=== PATIENT | male | born 1985 | race Caucasian/White ===

== ENCOUNTER 2020-03-21 10:59 | Emergency (ER) | payer SELFPAY ==
[2020-03-21 11:01] VITALS: BP 130/80; PULSE 98; RESP 18; TEMP 37.3; O2SAT 95; BMI 35.4
--- NOTE | 2020-03-21 11:11 | ED_ITS ---
HPI - General Adult General: Chief complaint: Upper Respiratory Infection Stated complaint: FLU LIKE SYMPTOMS Time Seen by Provider: 03/21/20 11:02 Source: patient Mode of arrival: ambulatory Limitations: no limitations History of Present Illness: HPI narrative: Patient is a 34-year-old male who presents to ED today with a complaint of a fever over the past 2 days. Patient tells me he is also having body aches, sore throat, and intermittent chest pain. He tells me pain seems to be worse with swallowing. He has not had a cough. Denies abdominal pain, nausea, vomiting, diarrhea. He is not having any ear pain/drainage, nasal congestion, sinus pain, visual changes. He denies sick contacts. No recent travel. He does admit to a few tick bites recently but has not noticed any abnormal lesions or rashes. States ticks couldn't have been attached for longer than a few hours. Onset (ago): day(s) Pain Consistency: constant Relieving factors: none Exacerbating factors: other (swallowing ) Associated symptoms: Reports chest pain; Deny dyspnea, headache(s), nausea, rash, palpitations, syncope or vomiting Review of Systems Const: Reports: fever(s), body aches and change in appetite; Denies: change in weight Eyes: Denies: change in vision, blurry vision, photophobia, floaters or seeing flashes ENMT: Reports: throat pain and odynophagia; Denies: dental pain, ear or mastoid pain, ear discharge, nasal discharge, nasal congestion or epistaxis Card: Reports: chest pain; Denies: palpitations, irregular heart rhythm, edema, swelling of feet/ankles, lightheadedness, syncope, pre-syncope, dyspnea on exertion, orthopnea, leg pain with exertion or acrocyanosis Resp: Denies: dyspnea, productive cough, non-productive cough, change in phlegm color, hemoptysis or chest congestion GI: Denies: abdominal pain, nausea, vomiting or diarrhea : Denies: flank pain, difficulty urinating, dysuria, urinary frequency or urinary urgency Musc: Denies: neck pain, back pain, extremity pain, extremity swelling, joint pain or joint swelling Skin/Breast: Denies: rash Neuro: Denies: headache(s), numbness in extremities, weakness in extremities or sensory changes Physical Exam Const: COMMON NORMALS: average body habitus, patient oriented x3, no limitations, healthy appearing, alert and well nourished GENERAL APPEARANCE: cooperative ORIENTATION/CONSCIOUSNESS: Yes oriented to person, Yes oriented to place and Yes oriented to time OTHER: looks like he doesn't feel well HENMT: COMMON NORMALS: normocephalic, atraumatic, hearing grossly normal bilaterally, external ears normal, EAC's normal, TM's normal bilaterally, Normal external nose present, Normal nasal mucous membranes and turbinates present and moist oral mucous membranes HEAD & SCALP: normal to inspection, normocephalic and atraumatic FACE & SINUS: normal facial exam and sinuses nontender NOSE: Normal external nose present and Normal nasal mucous membranes and turbinates present EXTERNAL EAR: Yes external ears normal EXTERNAL AUDITORY CANAL: EAC's normal TYMPANIC MEMBRANE: TM's normal bilaterally MOUTH: Normal oral and palatal mucosa present, lip normal and tongue normal THROAT: uvula midline and abnormal tonsil bilateral (no ARMORING MACHINE OPERATOR, no drooling, no muffled voice) erythema and exudates Eye: COMMON NORMALS: Equal, round and reactive pupils present, EOMs intact bilaterally, conjunctivae normal and no scleral icterus CONJUNCTIVA: Yes conjunctivae normal PUPIL: Yes Equal, round and reactive pupils present Neck/C-Spine: COMMON NORMALS: full ROM, supple and no meningeal signs GENERAL: Yes lymphadenopathy Lymphadenopathy location: anterior cervical Chest: COMMONS NORMALS: normal inspection of the chest and normal palpation of entire chest wall Resp: COMMON NORMALS: normal respiratory effort and clear to auscultation bilaterally AUSCULTATION: clear to auscultation bilaterally Cardio: COMMON NORMALS: regular rate and regular rhythm RATE: regular rate RHYTHM: regular rhythm GI: COMMON NORMALS: Normal to inspection, nondistended, normoactive bowel sounds present, Soft to palpation, non-tender, No hepatosplenomegaly present and no masses PALPATION: Yes Soft to palpation and Yes No hepatosplenomegaly present : COMMON NORMALS: Yes no CVA tenderness BLADDER/KIDNEY EXAM: Yes no CVA tenderness Back/Pelvis: COMMON NORMALS: no CVA tenderness and thoracic and lumbar spine normal to inspection Extremity: COMMON NORMALS: normal to inspection Neuro: COMMON NORMALS: patient oriented x3 SENSORIUM/ORIENTATION: Yes alert, Yes oriented to person, Yes oriented to place and Yes oriented to time MENINGEAL SIGNS: Yes no meningeal signs Skin: COMMON NORMALS: no rashes or lesions noted GENERAL SKIN EXAM: no rashes or lesions noted Course Vital Signs: Vital signs: Vital Signs Temperature 103 F H 03/21/20 12:50 Pulse Rate 109 H 03/21/20 13:03 Respiratory Rate 14 03/21/20 13:03 Blood Pressure 120/77 03/21/20 13:03 Pulse Oximetry 98 03/21/20 13:[address] [facility] - General Adult Lab Data: Labs: Lab Results 03/21/20 03/21/20 03/21/20 Range/Units 11:35 11:35 11:35 WBC 18.0 H (4.0-10.0) 10^3/ uL RBC 5.30 (4.1-5.3) 10^6/u L Hgb 16.7 H (11.7-16.6) g/dL Hct 48.9 (42.0-52.0) % MCV 92.3 (80-94) fL MCH 31.5 (28.0-34.0) pg MCHC 34.2 (30.0-36.0) g/dL RDW 12.4 (12.1-15.1) % Plt Count 211 (130-400) 10^3/c mm MPV 10.1 (7.4-10.4) fL Neut % (Auto) 85.9 % Lymph % (Auto) 6.0 % [place] % (Auto) 7.2 % Eos % (Auto) 0.1 % Baso % (Auto) 0.4 % Neut # (Auto) 15.5 H (1.8-7.7) 10^3/u L Lymph # (Auto) 1.1 (0.8-4.8) 10^3/u L [place] # (Auto) 1.3 H (0.2-0.9) 10^3/u L Eos # (Auto) 0.0 (0.0-0.8) 10^3/u L Baso # (Auto) 0.1 (0.0-0.1) 10^3/u L Nucleated RBC % (a uto) 0 % Nucleated RBCs # 0.0 /100WBC Sodium 135 L (136-145) mmol/L Potassium 3.8 (3.5-5.1) mmol/L Chloride 97 L (98-107) mmol/L Carbon Dioxide 26 (22-29) mmol/L Anion Gap 15.8 (5-19) BUN 8 (6-20) mg/dL Creatinine 0.9 (0.7-1.2) mg/dL GFR Calculation 97.2 (90-130) mL/min Glucose 104 (65-115) mg/dL Calculated Osmolal ity 276 L (285-295) mOsm/k g Calcium 9.8 (8.5-10.5) mg/dL Total Bilirubin 0.9 (0.15-1.2) mg/dL AST 24 (0-40) U/L ALT 33 (0-41) U/L Alkaline Phosphata se 81 (40-130) IU/L Total Protein 7.5 (6.6-8.7) g/dL Albumin 4.4 (3.5-5.2) g/dL Globulin 3.1 (1.3-4.6) g/dL Monoscreen Negative (Negative) Influenza Type A A g (Negative) Influenza Type B A g (Negative) Group A Strep Rapi d (Negative) 03/21/20 03/21/20 Range/Units 11:40 11:40 WBC (4.0-10.0) 10^3/ uL RBC (4.1-5.3) 10^6/u L Hgb (11.7-16.6) g/dL Hct (42.0-52.0) % MCV (80-94) fL MCH (28.0-34.0) pg MCHC (30.0-36.0) g/dL RDW (12.1-15.1) % Plt Count (130-400) 10^3/c mm MPV (7.4-10.4) fL Neut % (Auto) % Lymph % (Auto) % [place] % (Auto) % Eos % (Auto) % Baso % (Auto) % Neut # (Auto) (1.8-7.7) 10^3/u L Lymph # (Auto) (0.8-4.8) 10^3/u L [place] # (Auto) (0.2-0.9) 10^3/u L Eos # (Auto) (0.0-0.8) 10^3/u L Baso # (Auto) (0.0-0.1) 10^3/u L Nucleated RBC % (a uto) % Nucleated RBCs # /100WBC Sodium (136-145) mmol/L Potassium (3.5-5.1) mmol/L Chloride (98-107) mmol/L Carbon Dioxide (22-29) mmol/L Anion Gap (5-19) BUN (6-20) mg/dL Creatinine (0.7-1.2) mg/dL GFR Calculation (90-130) mL/min Glucose (65-115) mg/dL Calculated Osmolal ity (285-295) mOsm/k g Calcium (8.5-10.5) mg/dL Total Bilirubin (0.15-1.2) mg/dL AST (0-40) U/L ALT (0-41) U/L Alkaline Phosphata se (40-130) IU/L Total Protein (6.6-8.7) g/dL Albumin (3.5-5.2) g/dL Globulin (1.3-4.6) g/dL Monoscreen (Negative) Influenza Type A A g Negative (Negative) Influenza Type B A g Negative (Negative) Group A Strep Rapi d Positive H (Negative) Imaging Data^: CXR: Radiologist's impression: [place] [address] XRay Report Signed Patient: Ashkan Orta Unit #: [id number] : 1985 Age/Sex: 34 / M ADM Date: 03/21/20 Loc: ER Room/Bed: Attending Dr: Ordering Provider/Ordering MD: Sheri Peterson Date of Service: 03/21/20 Procedure(s): XR chest 1V portable [id number] Accession Number(s): [id number] Report Number: [id number] PROCEDURE INFORMATION: Exam: XR Chest, 1 View Exam date and time: 03/21/2020 11:44 AM Age: 34 years old Clinical indication: Chest pain; Type not specified; Additional info: Chest painx 2 days TECHNIQUE: Imaging protocol: XR of the chest Views: 1 view. COMPARISON: CR Chest 1 [place] [id number] 04/24/2017 7:07 AM FINDINGS: Lungs: No acute airspace disease. Pleural space: No pleural effusion. Heart/Mediastinum: No cardiomegaly. Bones/joints: Unremarkable. When correlating with the previous study, no significant interval changes are present. XR/XR chest 1V portable [id number] IMPRESSION: No acute airspace or pleural disease. Dictated By: Gerald Sevilla MD Signed By: Gerald Sevilla MD Signed Date/Time: 03/21/20 120 DD/ 120 Discharge Plan Discharge Patient Disposition: Home, Self-Care Clinical Impression: Acute streptococcal tonsillitis Qualifiers: Streptococcal tonsillitis recurrence: non-recurrent Qualified Code(s): J03.00 - Acute streptococcal tonsillitis, unspecified Condition: Stable Prescriptions: New Keflex 500 mg capsule 500 mg PO Q12H 10 Days Qty: 20 RF: 0 Discharge Orders: Discharge Order (Routine); Ordered 03/21/20 Ordered By: Sheri Peterson Referrals: Desiree Rico FNP [Primary Care Provider] - Patient Instructions: Tonsillitis (ED), Strep Throat - Adult Activity Restrictions/Additional Instructions: Please return to the emergency department for worsening pain, inability to hold down your medications, inability to swallow food/water/saliva, drooling, uncontrollable fevers, or any other concerns you may have. As discussed please alternate Tylenol and Motrin throughout the day for fevers and body aches. 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
--- NOTE | 2020-03-21 11:21 | XRR_ITS ---
PROCEDURE INFORMATION: Exam: XR Chest, 1 View Exam date and time: 03/21/2020 11:44 AM Age: 34 years old Clinical indication: Chest pain; Type not specified; Additional info: Chest painx 2 days TECHNIQUE: Imaging protocol: XR of the chest Views: 1 view. COMPARISON: CR Chest 1 [place] [id number] 04/24/2017 7:07 AM FINDINGS: Lungs: No acute airspace disease. Pleural space: No pleural effusion. Heart/Mediastinum: No cardiomegaly. Bones/joints: Unremarkable. When correlating with the previous study, no significant interval changes are present. XR/XR chest 1V portable [id number] IMPRESSION: No acute airspace or pleural disease.
[2020-03-21 11:52] LABS: Basophils # 0.1 10^3/uL (0.0-0.1); Basophils % 0.4 %; Eosinophils % 0.1 %; Hematocrit 48.9 % (42.0-52.0); Hemoglobin 16.7 g/dL (11.7-16.6); Lymphocytes # 1.1 10^3/uL (0.8-4.8); Mean Corpuscular HGB Conc 34.2 g/dL (30.0-36.0); Mean Corpuscular Hemoglobin 31.5 pg (28.0-34.0); Mean Corpuscular Volume 92.3 fL (80-94); Mean Platelet Volume 10.1 fL (7.4-10.4); Monocytes # 1.3 10^3/uL (0.2-0.9); Monocytes % 7.2 %; Neutrophils # 15.5 10^3/uL (1.8-7.7); Neutrophils % 85.9 %; Nucleated Red Blood Cells % 0 %; Platelet Count 211 10^3/cmm (130-400); Red Cell Distribution Width 12.4 % (12.1-15.1)
[2020-03-21 12:13] LABS: Monoscreen Negative (Negative)
[2020-03-21 12:20] LABS: Alanine Aminotransferase 33 U/L (0-41); Albumin Level 4.4 g/dL (3.5-5.2); Alkaline Phosphatase 81 IU/L (40-130); Anion Gap 15.8 (5-19); Aspartate Amino Transferase 24 U/L (0-40); Blood Urea Nitrogen 8 mg/dL (6-20); Calcium 9.8 mg/dL (8.5-10.5); Carbon Dioxide 26 mmol/L (22-29); Chloride 97 mmol/L (98-107); Globulin 3.1 g/dL (1.3-4.6); Glomerular Filtration Rate 97.2 mL/min (90-130); Glucose 104 mg/dL (65-115); Osmolality Calculated 276 mOsm/kg (285-295); Potassium 3.8 mmol/L (3.5-5.1); Sodium 135 mmol/L (136-145); Total Bilirubin 0.9 mg/dL (0.15-1.2); Total Protein 7.5 g/dL (6.6-8.7)
[2020-03-21 12:39] LABS: Rapid Strep A Test Positive (Negative)
[2020-03-21 12:50] VITALS: TEMP 39.4
[2020-03-21 12:58] LABS: Influenza A by IFA Negative (Negative); Influenza B by IFA Negative (Negative)
[2020-03-21] MEDS: acetaminophen 500 mg Tablet 1000 MG PO (13:02)
[2020-03-21 13:03] VITALS: BP 120/77; PULSE 109; RESP 14; O2SAT 98
[2020-03-22 13:10] LABS: Lyme AB Screen <0.90 index
[2020-03-22 20:16] LABS: Quest SARS-CoV-2 RNA NOT DETECTED (NOT DETECTED)
[2020-03-24 19:34] LABS: E. Chaffeensis AB IGG <1:64; E. Chaffeensis AB IGM <1:20; RMSF IGG NOT DETECTED; RMSF IGM NOT DETECTED
== END 2020-03-21 13:22 | disposition home or self-care (01) ==
PROVIDERS: Emergency Provider Physician Assistant; PCP Nurse Practitioner Family
DX: J03.00 Acute streptococcal tonsillitis, unspecified (principal)
CPT/HCPCS: 12345; 36415; 71045; 80053; 85025; 86308; 86618; 86666; 86757; 87635; 87804; 87880; 99283

== ENCOUNTER → 2020-08-03 13:28 | Outpatient (BNVA) | payer MEDICAID, SELFPAY | PROVIDERS: PCP Nurse Practitioner Family; Referring Provider Family Medicine Adult Medicine; Visit Provider Orthopaedic Surgery | DX: G89.29 Other chronic pain (principal); M25.519 Pain in unspecified shoulder; M79.601 Pain in right arm | CPT/HCPCS: 73030 ==

== ENCOUNTER 2021-05-08 08:03 | Emergency (ER) | payer MEDICAID, SELFPAY ==
[2021-05-08 08:11] VITALS: BP 106/69; PULSE 81; RESP 20; TEMP 37.1; O2SAT 96
[2021-05-08 08:17] VITALS: BP 106/69; PULSE 81; TEMP 37; O2SAT 96
--- NOTE | 2021-05-08 08:19 | CT_ITS ---
WS: [id number] CT ABDOMEN PELVIS TECHNIQUE: Contrast-enhanced CT of the abdomen and pelvis with coronal and sagittal reformatted image s. CLINICAL INFORMATION: abd pain COMPARISON: 2 27,016 DLP: 1783.[address] scans at [facility] use at least one of these dose optimization techniques: automat ed exposure control; mA and/or kV adjustment per patient size (includes targeted exams where dose is matched to clinical indication); or iterative reconstruction. FINDINGS: Diffuse fatty infiltration of the liver. Normal spleen. Normal GE junction. Lung bases are well aerat ed. Adrenal glands are normal. Normal renal parenchymal enhancement. No hydronephrosis. Normal gallbl adder. Normal portal vein and splenic vein. Normal spleen. Normal pancreas. Normal caliber abdominal aorta. Diffuse thickening with inflammatory stranding and surrounding indura tion involving the right colon and transverse colon. This also involves the descending left colon and proximal sigmoid colon. Findings consistent with infectious or inflammatory colitis. No drainable fl uid collections. Enlarged lymph nodes involving the central mesentery and right lower quadrants likely reactive no pel miriam or inguinal lymphadenopathy. CT/CT abdomen pelvis w con* [id number] IMPRESSION: 1. Colonic thickening with surrounding induration compatible with infectious o r inflammatory colitis more prominent at the hepatic flexure, splenic flexure a nd left lower quadrant. 2. Reactive lymph nodes along the central mesentery and right lower quadrant. 3. No drainable abscess or fluid collection. 4. No other significant findings. Attempted notification Ethan Clifford DO at 05/08/2021 8:53 AM.
[2021-05-08] MEDS: iohexol 300 mg/mL 100 mL Btl IV (08:34)
[2021-05-08 08:46] LABS: Basophils # 0.1 10^3/uL (0.0-0.1); Basophils % 0.7 %; Eosinophils # 0.2 10^3/uL (0.0-0.8); Eosinophils % 1.8 %; Hematocrit 44.3 % (42.0-52.0); Hemoglobin 15.5 g/dL (11.7-16.6); Lymphocytes # 1.6 10^3/uL (0.8-4.8); Lymphocytes % 16.9 %; Mean Corpuscular Hemoglobin 32.4 pg (28.0-34.0); Mean Corpuscular Volume 92.5 fl (80-94); Mean Platelet Volume 9.4 fL (7.4-10.4); Monocytes % 10.8 %; Neutrophils # 6.63 10^3/uL (1.8-7.7); Neutrophils % 69.6 %; Nucleated Red Blood Cells % 0 %; Platelet Count 231 10^3/cmm (130-400); Red Blood Count 4.79 10^6/uL (4.1-5.3); Red Cell Distribution Width 12.3 % (12.1-15.1); White Blood Count 9.5 10^3/uL (4.0-10.0)
[2021-05-08] MEDS: sodium chloride 0.9% 1,000 ML 999 ML IV (08:52)
[2021-05-08] MEDS: ondansetron 2 mg/ML SDV 2 mL 4 MG IVP (08:52)
[2021-05-08 09:08] LABS: Alanine Aminotransferase 20 U/L (0-41); Albumin Level 3.9 g/dL (3.5-5.2); Alkaline Phosphatase 77 IU/L (40-130); Anion Gap 14.7 (5-19); Aspartate Amino Transferase 13 U/L (0-40); Blood Urea Nitrogen 8 mg/dL (6-20); Carbon Dioxide 24 mmol/L (22-29); Chloride 105 mmol/L (98-107); Globulin 2.9 g/dL (1.3-4.6); Glomerular Filtration Rate 129.1 mL/min (90-130); Glucose 96 mg/dL (65-115); Lipase 21 U/L (13-60); Osmolality Calculated 288 mOsm/kg (285-295); Potassium 3.7 mmol/L (3.5-5.1); Sodium 140 mmol/L (136-145); Total Bilirubin 0.4 mg/dL (0.15-1.2); Total Protein 6.8 g/dL (6.6-8.7)
[2021-05-08 09:19] LABS: Add Urine Microscopic? YES; Bilirubin Urine 1+ (Negative); Blood Urine Neg (Negative); Glucose Urine UA Norm (Normal); Ketones Urine Negative (Negative); Leukocyte Esterase Urine Trace (Negative); Nitrate Urine Negative (Negative); Protein Urine Neg (Negative); Urine Appearance Clear (CLEAR); Urine Color Yellow (Yellow); Urobilinogen Urine 1 mg/dL (Negative); pH Urine 6.5 (5-7)
[2021-05-08 09:21] LABS: Add Urine Culture? No; Bacteria Urine TRACE /hpf; Mucus Urine 2+ /hpf; RBC Urine 0-4 /hpf (0-2); Squamous Epithelial Cell Urine 0-4 /hpf (0-5); WBC Urine 0-4 /hpf (0-5)
[2021-05-08 09:23] VITALS: RESP 20; O2SAT 97
[2021-05-08] MEDS: morphine 4 mg/mL SDV 1 mL 6 MG IVP (09:23)
[2021-05-08 09:30] VITALS: BP 117/67; PULSE 77; RESP 18; O2SAT 95
--- NOTE | 2021-05-08 09:33 | PC.NURSE ---
THIS NURSE ADMINISTERED 6 MG OF MORPHINE TO PATIENT. PATIENT IMMEDIATELY FELT PAIN RELIEF DOWN TO A 3/10, BUT ALSO STATED THAT HIS HEART FELT HEAVY. PATIENT IS DROWSY, BUT RESPONDS TO VERBAL STIMULUS. AT BEDSIDE, NO ACUTE DISTRESS NOTED.
--- NOTE | 2021-05-08 09:57 | ED_ITS ---
HPI - Abdominal Pain General: Chief Complaint: Abdominal Pain Stated Complaint: SEVERE LOWER/L SIDE ABD PAIN Time Seen by Provider: 05/08/21 08:09 History of Present Illness: HPI narrative: 35-year-old male presents to the emergency room with complaints of abdominal pain. Began generally periumbilical radiates now into both lower quadrants is difficult to get him to localize it to one particular area he states when he gets discomfort gets across the entire lower pelvic region. He is not had any cough cold nasal congestion or sore throat. He has had some diarrhea with this but denies any hematochezia. No vomiting. No dysuria urgency or frequency is not noticed anything that exacerbates it or relieves it. MD elicited complaint: abdominal pain Pertinent past history: none Onset (ago): day(s) Pain Consistency: intermittent and colicky Location: Periumbilical Severity: moderate Quality: cramping Radiation: none Migration to: LLQ and RLQ Exacerbating factors: movement Relieving factors: rest Associated Symptoms: Reports anorexia, bloating, GI cramping, diarrhea, nausea and poor appetite; Denies belching, change in bowel habits, change in stool character, chills, coffee ground emesis, constipation, dyspepsia, dysuria, excessive flatus, fever(s), heartburn, hematochezia, hematuria, hematemesis, fecal incontinence, loose stools, melena, syncope and vomiting Review of Systems Const: Denies: fever(s) or chills ENMT: Denies: throat pain, ear or mastoid pain, nasal discharge or nasal congestion Card: Denies: syncope Resp: Denies: dyspnea, productive cough or non-productive cough GI: Reports: nausea, diarrhea, bloating and GI cramping; Denies: vomiting, hematemesis, coffee ground emesis, heartburn, constipation, be lching, excessive flatus, fecal incontinence, change in bowel habits, change in stool character, hematochezia or melena : Denies: dysuria or hematuria Skin/Breast: Denies: rash or pruritus PFSH ED PFSH: Medical History Chronic pain of right upper extremity Muscle right arm weakness Rotator cuff syndrome of shoulder and allied disorders Social History Smoking and tobacco status: never smoked Physical Exam Const: COMMON NORMALS: no acute distress GENERAL APPEARANCE: cooperative and comfortable ORIENTATION/CONSCIOUSNESS: Yes awake, Yes oriented to person, Yes oriented to place and Yes oriented to time HENMT: COMMON NORMALS: normocephalic, atraumatic and hearing grossly normal bilaterally HEAD & SCALP: normocephalic and atraumatic Neck/C-Spine: COMMON NORMALS: no JVD Lymph: LYMPHATIC: no lymphadenopathy noted and no lymphedema noted Resp: COMMON NORMALS: normal respiratory effort, No retractions, No use of accessory muscles and clear to auscultation bilaterally AUSCULTATION: clear to auscultation bilaterally Cardio: COMMON NORMALS: no JVD, regular rate, regular rhythm and No murmurs present (Cardio) RATE: regular rate RHYTHM: regular rhythm GI: COMMON NORMALS: No hepatosplenomegaly present AUSCULTATION: Yes normoactive bowel sounds PALPATION: Yes Tenderness to palpation present (GI) Details: LLQ and RLQ, No Guarding due to palpation present (GI) and Yes No hepatosplenomegaly present Extremity: COMMON NORMALS: normal to inspection, capillary refill normal, no clubbing, cyanosis or edema, no calf tenderness and no pedal edema Neuro: SENSORIUM/ORIENTATION: Yes oriented to person, Yes oriented to place and Yes oriented to time Skin: COMMON NORMALS: no rashes or lesions noted GENERAL SKIN EXAM: no rashes or lesions noted Course Vital Signs: Vital signs: Vital Signs Temperature 98.6 F 05/08/21 08:17 Pulse Rate 73 05/08/21 10:29 Respiratory Rate 18 05/08/21 09:30 Blood Pressure 131/62 05/08/21 10:29 Pulse Oximetry 96 05/08/21 10:29 MDM - Abdominal Pain MDM Narrative: Medical decision making narrative: Viewed labs and imaging findings with the patient. We will start him on Cipro and Flagyl hydrocodone for pain promethazine as needed clear liquid diet for 24 to 48 hours then advance as tolerated. If worsening return. Follow-up with his primary care doctor at some point he probably should have a colonoscopy to further evaluate. Lab Data: Labs: Lab Results 05/08/21 05/08/21 05/08/21 Range/Units 08:30 08:30 08:56 WBC 9.5 (4.0-10.0) 10^3/ uL RBC 4.79 (4.1-5.3) 10^6/u L Hgb 15.5 (11.7-16.6) g/dL Hct 44.3 (42.0-52.0) % MCV 92.5 (80-94) fl MCH 32.4 (28.0-34.0) pg MCHC 35.0 (30.0-36.0) g/dL RDW 12.3 (12.1-15.1) % Plt Count 231 (130-400) 10^3/c mm MPV 9.4 (7.4-10.4) fL Neut % (Auto) 69.6 % Lymph % (Auto) 16.9 % [place] % (Auto) 10.8 % Eos % (Auto) 1.8 % Baso % (Auto) 0.7 % Neut # (Auto) 6.63 (1.8-7.7) 10^3/u L Lymph # (Auto) 1.6 (0.8-4.8) 10^3/u L [place] # (Auto) 1.0 H (0.2-0.9) 10^3/u L Eos # (Auto) 0.2 (0.0-0.8) 10^3/u L Baso # (Auto) 0.1 (0.0-0.1) 10^3/u L Nucleated RBC % (a uto) 0 % Nucleated RBCs # 0.0 /100WBC Sodium 140 (136-145) mmol/L Potassium 3.7 (3.5-5.1) mmol/L Chloride 105 (98-107) mmol/L Carbon Dioxide 24 (22-29) mmol/L Anion Gap 14.7 (5-19) BUN 8 (6-20) mg/dL Creatinine 0.7 (0.7-1.2) mg/dL GFR Calculation 129.1 (90-130) mL/min Glucose 96 (65-115) mg/dL Calculated Osmolal ity 288 (285-295) mOsm/k g Calcium 9.0 (8.5-10.5) mg/dL Total Bilirubin 0.4 (0.15-1.2) mg/dL AST 13 (0-40) U/L ALT 20 (0-41) U/L Alkaline Phosphata se 77 (40-130) IU/L Total Protein 6.8 (6.6-8.7) g/dL Albumin 3.9 (3.5-5.2) g/dL Globulin 2.9 (1.3-4.6) g/dL Lipase 21 (13-60) U/L Urine Color Yellow (Yellow) Urine Appearance Clear (CLEAR) Urine pH 6.5 (5-7) Ur Specific Gravit y 1.010 (1.005-1.030) Urine Protein Neg (Negative) Urine Glucose (UA) Norm (Normal) Urine Ketones Negative (Negative) Urine Blood Neg (Negative) Urine Nitrate Negative (Negative) Urine Bilirubin 1+ H (Negative) Urine Urobilinogen 1 H (Negative) mg/dL Ur Leukocyte Deja ase Trace H (Negative) Urine RBC 0-4 H (0-2) /hpf Urine WBC 0-4 H (0-5) /hpf Ur Squamous Epith Cells 0-4 H (0-5) /hpf Amorphous Sediment Not Reportable Urine Bacteria Trace (NONE) /hpf Urine Mucus 2+ /hpf Discharge Plan Discharge Patient Disposition: Home Clinical Impression: Colitis Condition: Stable Prescriptions: New Cipro 500 mg tablet 500 mg PO BID Qty: 20 RF: 0 Flagyl 500 mg tablet 500 mg PO BID 10 Days Qty: 20 RF: 0 hydrocodone-acetaminophen 5-325 mg tablet 1 tab PO Q6H PRN (Reason: pain) Qty: 15 RF: 0 No Action promethazine 25 mg tablet 25 mg PO Q6H PRN (Reason: nausea and vomiting) Qty: 20 RF: 0 Discharge Orders: Discharge ED (Routine); Ordered 05/08/21 Ordered By: Ethan Clifford Discharge Diet: Clear Liquid Discharge Activity: Increase activity as tolerated Patient Instructions: Opioid Safety Coding Level of 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
[2021-05-08 10:02] VITALS: BP 107/74; PULSE 79; O2SAT 97
[2021-05-08 10:29] VITALS: BP 131/62; PULSE 73; O2SAT 96
== END 2021-05-08 10:31 | disposition home or self-care (01) ==
PROVIDERS: Emergency Provider Family Medicine
DX: K52.9 Noninfective gastroenteritis and colitis, unspecified (principal)
CPT/HCPCS: 74177; 80053; 81001; 83690; 85025; 96361; 96374; 96375; 99284; J2270; J2405; J7030; Q9967

== ENCOUNTER 2021-05-23 08:48 | Emergency (ER) | payer MEDICAID, SELFPAY ==
[2021-05-23 09:56] VITALS: BP 138/89; PULSE 53; RESP 16; TEMP 36.6; O2SAT 97; BMI 36.1
--- NOTE | 2021-05-23 10:01 | W.ED.NEUROSD ---
HPI - Neuro Symptoms/Deficit General: Chief Complaint: Neuro Symptoms/Deficit Stated Complaint: blurry vision , headache, chest pain Time Seen by Provider: 05/23/21 10:01 History of Present Illness: HPI Narrative: Mr. Orta is a 33-year-old gentleman with reported history of mini strokes who presents emergency department due to vision changes and headache associated with paresthesias. Symptom onset was approximately 7 PM on 05/22. Prior to this he endorses feeling at his baseline health. He primarily endorses chest discomfort, left arm paresthesias, and headache associated with vision changes. Overall the course of symptoms has persisted. He took a oxycodone at home and is somewhat somnolent at this time. There are no specific exacerbating, or alleviating factors. He has had similar episodes in the past. Review of Systems General: Reports: 10 or more systems reviewed and unremarkable except in HPI and below Narrative: CONSTITUTIONAL: denies fever, fatigue, weakness EYES - denies pain, denies loss of vision EARS - denies ear issues. NOSE - denies congestion or rhinorrhea. THROAT - denies sore throat or difficulty swallowing. CARDIOVASCULAR -see HPI RESPIRATORY - denies shortness of breath and cough GASTROINTESTINAL - denies abdominal pain, no nausea vomiting, no changes in bowel habits GENITOURINARY - denies dysuria or urinary frequency MUSCULOSKELETAL- denies deformity or pain SKIN - denies rashes or new changed skin lesions NEUROLOGIC -see HPI HEMATOLOGIC/LYMPHATIC - denies easy bruising or lymphadenopathy. [facility] ED PFSH: Medical History Chronic pain of right upper extremity Muscle right arm weakness Rotator cuff syndrome of shoulder and allied disorders Social History Smoking and tobacco status: never smoked Physical Exam Narrative: EXAM NARRATIVE: GENERAL/CONSTITUTIONAL -mildly ill-appearing. No acute distress. Somnolent Eyes - PERRL, no conjunctival injection ENMT - Atraumatic external nose and ears. Moist mucous membranes NECK - supple. trachea midline CARDIOVASCULAR - regular rate and rhythm. Peripheral pulses 2+ and equal RESPIRATORY -clear to auscultation bilaterally. No retractions or accessory muscle use. ABDOMEN/GI - Nontender/Nondistended. No tenderness to percussion or evidence of peritonitis MSK - Extremities without obvious deformity or tenderness to palpation SKIN - Warm, Dry NEURO - alert and appropriately oriented. Cranial nerves II through XII intact. Moves all extremities. Subjective sensory changes. Overall slowed coordination. PSYCH - Appropriate mood and affect Course ED course: - Patient was seen and evaluated by me at bedside - Patient placed on cardiac monitors, IV access obtained - Initial evaluation notable for somnolent appearance, subjective neurologic changes -Symptom treatment ordered - Labs notable for no acute abnormality to explain patient's symptoms - Imaging notable for no acute abnormality to explain symptoms - Upon serial reexamination after treatment the patient was improved with headache treatment though not completely gone. Patient reports resolution of visual changes. -Patient's age is atypical for primary neurologic process and no significant abnormality was noted on vascular imaging. Given time of onset before presentation I did explain that definitive rule out of subarachnoid hemorrhage would require lumbar puncture which he declined at this time. Additional considerations for patient's symptoms could be complex headache. - At time of seeing and evaluating the patient I did not have access to previous system records and no records of advanced head imaging or neurology evaluation were available as reported by patient. - The results of ED evaluation were discussed with the patient including prescriptions and/or symptomatic cares (if applicable) including appropriate and responsible use, followup plan, and return precautions. The patient verbalized understanding and felt safe for discharge. - Patient discharged in satisfactory condition. Vital Signs: Vital signs: Vital Signs Temperature 97.9 F 05/23/21 09:56 Pulse Rate 57 L 05/23/21 14:07 Respiratory Rate 16 05/23/21 09:56 Blood Pressure 116/72 05/23/21 14:07 Pulse Oximetry 99 05/23/21 14:07 MDM - Neuro Symptoms/Deficit Medical Records: Attestation: I reviewed the patient's medical records. Lab Data: Attestation: I reviewed the patient's lab results. Labs: Lab Results 05/23/21 05/23/21 05/23/21 Range/Units 10:29 10:29 10:29 WBC 7.4 (4.0-10.0) 10^3/ uL RBC 5.12 (4.1-5.3) 10^6/u L Hgb 16.1 (11.7-16.6) g/dL Hct 46.9 (42.0-52.0) % MCV 91.6 (80-94) fl MCH 31.4 (28.0-34.0) pg MCHC 34.3 (30.0-36.0) g/dL RDW 12.1 (12.1-15.1) % Plt Count 284 (130-400) 10^3/c mm MPV 9.5 (7.4-10.4) fL Neut % (Auto) 61.1 % Lymph % (Auto) 28.0 % [place] % (Auto) 7.0 % Eos % (Auto) 2.4 % Baso % (Auto) 1.2 % Neut # (Auto) 4.51 (1.8-7.7) 10^3/u L Lymph # (Auto) 2.1 (0.8-4.8) 10^3/u L [place] # (Auto) 0.5 (0.2-0.9) 10^3/u L Eos # (Auto) 0.2 (0.0-0.8) 10^3/u L Baso # (Auto) 0.1 (0.0-0.1) 10^3/u L Nucleated RBC % (a uto) 0 % Nucleated RBCs # 0.0 /100WBC Sodium 138 (136-145) mmol/L Potassium 4.2 (3.5-5.1) mmol/L Chloride 103 (98-107) mmol/L Carbon Dioxide 24 (22-29) mmol/L Anion Gap 15.2 (5-19) BUN 15 (6-20) mg/dL Creatinine 0.6 L (0.7-1.2) mg/dL GFR Calculation 154.2 H (90-130) mL/min Glucose 90 (65-115) mg/dL POC Glucose (70-110) mg/dL Calculated Osmolal ity 286 (285-295) mOsm/k g Lactate 0.9 (0.5-2.2) mmol/L Calcium 9.0 (8.5-10.5) mg/dL Total Bilirubin 0.7 (0.15-1.2) mg/dL AST 27 (0-40) U/L ALT 54 H (0-41) U/L Alkaline Phosphata se 65 (40-130) IU/L Total Protein 7.1 (6.6-8.7) g/dL Albumin 4.3 (3.5-5.2) g/dL Globulin 2.8 (1.3-4.6) g/dL TSH 0.79 (0.27-4.20) uIU/ mL Urine Color (Yellow) Urine Appearance (CLEAR) Urine pH (5-7) Ur Specific Gravit y (1.005-1.030) Urine Protein (Negative) Urine Glucose (UA) (Normal) Urine Ketones (Negative) Urine Blood (Negative) Urine Nitrate (Negative) Urine Bilirubin (Negative) Urine Urobilinogen (Negative) mg/dL Ur Leukocyte Deja ase (Negative) 05/23/21 05/23/21 Range/Units 11:02 11:26 WBC (4.0-10.0) 10^3/ uL RBC (4.1-5.3) 10^6/u L Hgb (11.7-16.6) g/dL Hct (42.0-52.0) % MCV (80-94) fl MCH (28.0-34.0) pg MCHC (30.0-36.0) g/dL RDW (12.1-15.1) % Plt Count (130-400) 10^3/c mm MPV (7.4-10.4) fL Neut % (Auto) % Lymph % (Auto) % [place] % (Auto) % Eos % (Auto) % Baso % (Auto) % Neut # (Auto) (1.8-7.7) 10^3/u L Lymph # (Auto) (0.8-4.8) 10^3/u L [place] # (Auto) (0.2-0.9) 10^3/u L Eos # (Auto) (0.0-0.8) 10^3/u L Baso # (Auto) (0.0-0.1) 10^3/u L Nucleated RBC % (a uto) % Nucleated RBCs # /100WBC Sodium (136-145) mmol/L Potassium (3.5-5.1) mmol/L Chloride (98-107) mmol/L Carbon Dioxide (22-29) mmol/L Anion Gap (5-19) BUN (6-20) mg/dL Creatinine (0.7-1.2) mg/dL GFR Calculation (90-130) mL/min Glucose (65-115) mg/dL POC Glucose 93 (70-110) mg/dL Calculated Osmolal ity (285-295) mOsm/k g Lactate (0.5-2.2) mmol/L Calcium (8.5-10.5) mg/dL Total Bilirubin (0.15-1.2) mg/dL AST (0-40) U/L ALT (0-41) U/L Alkaline Phosphata se (40-130) IU/L Total Protein (6.6-8.7) g/dL Albumin (3.5-5.2) g/dL Globulin (1.3-4.6) g/dL TSH (0.27-4.20) uIU/ mL Urine Color Yellow (Yellow) Urine Appearance Clear (CLEAR) Urine pH 5 (5-7) Ur Specific Gravit y 1.025 (1.005-1.030) Urine Protein Neg (Negative) Urine Glucose (UA) Norm (Normal) Urine Ketones Negative (Negative) Urine Blood Neg (Negative) Urine Nitrate Negative (Negative) Urine Bilirubin Neg (Negative) Urine Urobilinogen Norm (Negative) mg/dL Ur Leukocyte Deja ase Negative (Negative) EKG Data^: EKG 1: Attestation: I personally reviewed and interpreted this EKG as follows: EKG interpretation date: 05/23/21 EKG interpretation time: 11:00 Interpretation: Twelve-lead EKG shows regular sinus rhythm at a rate of 50. CA interval 195, QRS duration 92, QTc 383. Normal axis Interpretation: Sinus bradycardia. Discharge Plan Discharge Patient Disposition: Home Clinical Impression: Headache, Numbness, Alteration in vision Condition: Stable Prescriptions: New Reglan 10 mg tablet 10 mg PO Q6H PRN (Reason: nausea and vomiting) Qty: 7 RF: 0 Benadryl 25 mg capsule 25 mg PO Q8H PRN (Reason: motion sickness) Qty: 7 RF: 0 No Action hydrocodone-acetaminophen 5-325 mg tablet 1 tab PO Q6H PRN (Reason: pain) Qty: 15 RF: 0 Discharge Orders: Discharge ED (Routine); Ordered 05/23/21 Ordered By: Jesse Aguilar Discharge Diet: Usual diet Discharge Activity: Resume usual activity Patient Instructions: Headache - Migraine (Adult), Acute Headache (ED), Blurred Vision (ED), Opioid Safety Activity Restrictions/Additional Instructions: Thank you for visiting the emergency department. You were seen and evaluated for neurologic symptoms, the exact cause of your symptoms is somewhat unclear. After discussion of risks and benefits you elected for outpatient follow-up instead of lumbar puncture here in the emergency department. Please follow-up with your primary care provider. Please return to the emergency department for worsening of your symptoms or anything else that you are concerned about and feel needs emergency department evaluation Coding Level of Care Code ED [employer] for Jocelynn Estrella
--- NOTE | 2021-05-23 10:06 | XRR_ITS ---
PROCEDURE INFORMATION: Exam: XR Chest Exam date and time: 05/23/2021 10:06 AM Age: 35 years old Clinical indication: Pain; Angina pectoris; Additional info: Chest pain TECHNIQUE: Imaging protocol: XR of the chest. Views: 1 view. Total images: 1 COMPARISON: CR XR chest 1V portable [id number] 03/21/2020 11:36 AM FINDINGS: Lungs: Unremarkable. No consolidation. Pleural spaces: Unremarkable. No pleural effusion. No pneumothorax. Heart/Mediastinum: Unremarkable. No cardiomegaly. Bones/joints: Unremarkable. XR/XR chest 1V portable [id number] IMPRESSION: No acute findings.
--- NOTE | 2021-05-23 10:06 | CTR_ITS ---
PROCEDURE INFORMATION: Exam: CT Head Without Contrast Exam date and time: 05/23/2021 10:06 AM Age: 35 years old Clinical indication: Pain; Visual disturbance; Headache not specified; Patient HX: VALENCIA, dizzy, loss of vision in lt eye; Additional info: Neuro deficits TECHNIQUE: Imaging protocol: Computed tomography of the head without contrast. Total images: 212 Radiation optimization: All CT scans at this facility use at least one of these dose optimization techniques: automated exposure control; mA and/or kV adjustment per patient size (includes targeted exams where dose is matched to clinical indication); or iterative reconstruction. COMPARISON: CT head wo con* [id number] 12/26/2014 8:26 PM RADIATION DOSE METRICS: Total DLP (mGy-cm): 1016.6 FINDINGS: Brain: Normal. No hemorrhage. Unremarkable white matter. No mass effect. Cerebral ventricles: No ventriculomegaly. Paranasal sinuses: Mild mucosal thickening of the paranasal sinuses. Mastoid air cells: Visualized mastoid air cells are well aerated. Bones/joints: Unremarkable. No acute fracture. Soft tissues: Unremarkable. CT/CT head wo con* [id number] IMPRESSION: No acute intracranial abnormality. Radiation Dose CTDIVOL = (mGy): DLP = 1016.6 (mGy-cm)
[2021-05-23 10:28] VITALS: BP 137/69; PULSE 54; O2SAT 96
[2021-05-23 10:36] VITALS: BP 139/102; PULSE 60; O2SAT 96
[2021-05-23 10:47] LABS: Basophils # 0.1 10^3/uL (0.0-0.1); Basophils % 1.2 %; Eosinophils # 0.2 10^3/uL (0.0-0.8); Eosinophils % 2.4 %; Hematocrit 46.9 % (42.0-52.0); Hemoglobin 16.1 g/dL (11.7-16.6); Lymphocytes # 2.1 10^3/uL (0.8-4.8); Mean Corpuscular HGB Conc 34.3 g/dL (30.0-36.0); Mean Corpuscular Hemoglobin 31.4 pg (28.0-34.0); Mean Corpuscular Volume 91.6 fl (80-94); Mean Platelet Volume 9.5 fL (7.4-10.4); Monocytes # 0.5 10^3/uL (0.2-0.9); Neutrophils # 4.51 10^3/uL (1.8-7.7); Neutrophils % 61.1 %; Nucleated Red Blood Cells % 0 %; Platelet Count 284 10^3/cmm (130-400); Red Blood Count 5.12 10^6/uL (4.1-5.3); Red Cell Distribution Width 12.1 % (12.1-15.1); White Blood Count 7.4 10^3/uL (4.0-10.0)
[2021-05-23 11:05] LABS: Glucose Point of Care 93 mg/dL (70-110)
[2021-05-23 11:07] LABS: Lactate (Lactic Acid level) 0.9 mmol/L (0.5-2.2)
[2021-05-23 11:13] LABS: Thyroid Stimulating Hormone 0.79 uIU/mL (0.27-4.20)
--- NOTE | 2021-05-23 11:38 | CT_ITS ---
WS: [id number] CTA HEAD AND NECK TECHNIQUE: Contrast enhanced CTA of the head and neck with coronal and sagittal reformatted images an d maximum intensity projection (MIP) images. NASCET criteria utilized. CLINICAL INFORMATION: stroke like symptoms COMPARISON: None. DLP: 2641.[address] scans at [facility] use at least one of these dose optimization techniques: automated e xposure control; mA and/or kV adjustment per patient size (includes targeted exams where dose is matc hed to clinical indication); or iterative reconstruction. FINDINGS: Images at the skull base limited due to patient motion and venous contamination. RIGHT: Right common carotid artery is patent. No significant right ICA stenosis. ICA is patent to the skull base. Tortuous right ICA at the skull base with motion artifact. LEFT: Left common carotid artery is patent. No significant left ICA stenosis. Left ICA is patent to t he skull base. INTRACRANIAL CTA: Codominant and patent vertebral arteries bilaterally. Basilar artery is patent. Patent left posterio r communicating artery. Normal vascularity to the OPER[employer] MANAGER territory bilaterally. Both ICAs are patent at the skull base. Normal vascularity to the CIELO and MCA territories bilaterally . No evidence of proximal flow limiting stenosis or aneurysm. Lung apices are well aerated. Normal thyroid gland. Mastoid air cells well aerated. Mild mucosal thic kening in the ethmoid air cells. A few prominent cervical lymph nodes bilaterally likely reactive. CT/CT angio headneck* [id number] IMPRESSION: Images at the skull base degraded by venous contamination and motio n 1. No significant ICA stenosis bilaterally. Both ICAs appear patent to the sku ll base considering motion artifact. 2. Codominant and patent vertebral arteries bilaterally. 3. Unremarkable intracranial CTA. No proximal flow limiting stenosis. 4. Mild mucosal thickening in the ethmoid air cells.
[2021-05-23 11:43] LABS: Add Urine Microscopic? NO; Charge for UA Resulting for Rev
[2021-05-23 11:52] LABS: Bilirubin Urine Neg (Negative); Blood Urine Neg (Negative); Glucose Urine UA Norm (Normal); Ketones Urine Negative (Negative); Leukocyte Esterase Urine Negative (Negative); Nitrate Urine Negative (Negative); Protein Urine Neg (Negative); Specific Gravity, Urine 1.025 (1.005-1.030); Urine Appearance Clear (CLEAR); Urine Color Yellow (Yellow); Urobilinogen Urine Norm (Negative); pH Urine 5 (5-7)
[2021-05-23 11:52] LABS: Alanine Aminotransferase 54 U/L (0-41); Albumin Level 4.3 g/dL (3.5-5.2); Alkaline Phosphatase 65 IU/L (40-130); Anion Gap 15.2 (5-19); Aspartate Amino Transferase 27 U/L (0-40); Blood Urea Nitrogen 15 mg/dL (6-20); Carbon Dioxide 24 mmol/L (22-29); Chloride 103 mmol/L (98-107); Globulin 2.8 g/dL (1.3-4.6); Glomerular Filtration Rate 154.2 mL/min (90-130); Glucose 90 mg/dL (65-115); Osmolality Calculated 286 mOsm/kg (285-295); Potassium 4.2 mmol/L (3.5-5.1); Sodium 138 mmol/L (136-145); Total Bilirubin 0.7 mg/dL (0.15-1.2); Total Protein 7.1 g/dL (6.6-8.7)
[2021-05-23] MEDS: diphenhydrAMINE 50 mg/mL SDV 1mL 25 MG IVP (11:54)
[2021-05-23] MEDS: acetaminophen 325 mg Tablet 650 MG PO (11:55)
[2021-05-23] MEDS: metoclopramide 5 mg/mL SDV 2 mL 10 MG IVP (11:55)
[2021-05-23] MEDS: lactated ringers 1,000 ML 999 ML IV (11:55)
[2021-05-23] MEDS: iohexol 350 mg/mL 100 mL Btl IV (12:46)
[2021-05-23 14:07] VITALS: BP 116/72; PULSE 57; O2SAT 99
--- NOTE | 2021-05-24 10:20 | DCPLANNER ---
Addendum entered by Rafaela Dallas 06/06/21 15:51: traffic operations manager was contacted by the neurology clinic stating that they spoke with patient and gave him the hours that they were open. Patient stated that he would need to speak with his boss to see if he could take off for an appointment. If he wanted to schedule an appointment, he would call the clinic to schedule. Addendum entered by Rafaela Dallas 06/02/21 10:55: traffic operations manager sent another email to the neurology clinic, asking about appointment information. Original Note: traffic operations manager had message to schedule a follow up appointment for patient with neurology. traffic operations manager faxed patients information to the neurology clinic. Patients information will be printed and reviewed. Clinic will call patient with appointment information.
== END 2021-05-23 14:10 | disposition home or self-care (01) ==
PROVIDERS: Emergency Provider Emergency Medicine
DX: H53.9 Unspecified visual disturbance (principal); R20.0 Anesthesia of skin; R51.9 Headache, unspecified
CPT/HCPCS: 36416; 70450; 70496; 70498; 71045; 80053; 81003; 82962; 83605; 84443; 85025; 96361; 96374; 96375; 99283; J1200; J2765; Q9967

== ENCOUNTER 2021-09-10 15:46 | Emergency (ER) | payer MEDICAID, SELFPAY ==
[2021-09-10 16:12] VITALS: BP 147/83; PULSE 84; RESP 12; TEMP 37.1; O2SAT 96; BMI 36.5
--- NOTE | 2021-09-10 18:09 | W.ED.DENTAL ---
HPI - Dental/Oral General: Chief complaint: Dental/Oral Stated complaint: dental pain Time Seen by Provider: 09/10/21 18:08 History of Present Illness: HPI Narrative: Patient comes in today with complaints of left lower jaw pain and swelling. Patient has poor dentition. Patient reports a carious first molar in the left lower jaw that has had an infection in it before. Patient reports he is recently started working is waiting to build up some time off in order to see the dentist. Review of Systems General: Reports: 10 or more systems reviewed and unremarkable except in HPI and below ENMT: Reports: other (Dental pain) [facility] PFSH: Medical History Chronic pain of right upper extremity Muscle right arm weakness Rotator cuff syndrome of shoulder and allied disorders Social History Smoking and tobacco status: never smoked Physical Exam Const: COMMON NORMALS: no acute distress and patient oriented x3 GENERAL APPEARANCE: cooperative HENMT: COMMON NORMALS: TM's normal bilaterally and Normal external nose present HEAD & SCALP: other (Left lower jaw swelling) NOSE: Normal external nose present TYMPANIC MEMBRANE: TM's normal bilaterally MOUTH: other (Multiple caries and fair to poor dentition. ) THROAT: posterior oropharynx normal OTHER: Swelling along the first molar of the left lower jaw gumline, tooth is decayed with significant loss of crown. Eye: GENERAL EYE: appearance normal, both eyes and all related structures Neck/C-Spine: COMMON NORMALS: full ROM Lymph: LYMPHATIC: no lymphadenopathy noted Chest: COMMONS NORMALS: normal inspection of the chest Resp: COMMON NORMALS: normal respiratory effort EFFORT & INSPECTION: Yes able to speak in complete sentences Cardio: COMMON NORMALS: regular rate and regular rhythm RATE: regular rate RHYTHM: regular rhythm GI: COMMON NORMALS: non-tender Back/Pelvis: COMMON NORMALS: thoracic and lumbar spine normal to inspection Extremity: COMMON NORMALS: normal to inspection Neuro: COMMON NORMALS: patient oriented x3 and moves all extremities Psych: COMMON NORMALS: mental status grossly normal and cooperative Skin: COMMON NORMALS: no rashes or lesions noted GENERAL SKIN EXAM: no rashes or lesions noted Course Vital Signs: Vital signs: Vital Signs Temperature 98.7 F 09/10/21 16:12 Pulse Rate 84 09/10/21 16:12 Respiratory Rate 12 09/10/21 16:12 Blood Pressure 147/83 09/10/21 16:12 Pulse Oximetry 96 09/10/21 16:12 MDM - Dental/Oral MDM Narrative: Medical decision making narrative: 35-year-old male comes in with left lower jaw pain and swelling. On exam patient has poor dentition with a carious first molar in the left lower jaw. Posterior pharynx shows no significant swelling or asymmetry. Differential diagnosis includes but not limited to floor mouth cellulitis, odontalgia, dental abscess. We will treat with clindamycin due to patient's allergy to amoxicillin and penicillins. Patient was given a 6 tablet of hydrocodone for pain control. Evaluation of the chart indicated no recent prescriptions for hydrocodone or narcotics. Patient understands the need to follow-up with dentist for definitive care. Discharge Plan Discharge Patient Disposition: Home Clinical Impression: Dental abscess Condition: Stable Prescriptions: New clindamycin HCl 300 mg capsule 300 mg PO Q6H 7 Days Qty: 28 RF: 0 Continued hydrocodone-acetaminophen 5-325 mg tablet 1 tab PO Q6H PRN (Reason: pain) Qty: 6 RF: 0 No Action Reglan 10 mg tablet 10 mg PO Q6H PRN (Reason: nausea and vomiting) Qty: 7 RF: 0 Benadryl 25 mg capsule 25 mg PO Q8H PRN (Reason: motion sickness) Qty: 7 RF: 0 Discharge Orders: Discharge ED (Routine); Ordered 09/10/21 Ordered By: Ermias Loredo Discharge Diet: Usual diet Discharge Activity: Increase activity as tolerated Patient Instructions: Dental Abscess (ED), Opioid Safety Activity Restrictions/Additional Instructions: Activity as tolerated. Drink plenty of fluids. Use acetaminophen and ibuprofen to help control pain. Use hydrocodone for breakthrough pain. Follow-up with dentist for definitive care. Return to the ER for new concerns. Coding Level of Care Code ED Manager Diversity for Jocelynn Estrella
[2021-09-10 18:17] VITALS: BP 147/83; PULSE 84; RESP 12; TEMP 37.1; O2SAT 96
[2021-09-10] MEDS: clindamycin 150 mg Capsule 300 MG PO (18:30)
[2021-09-10] MEDS: HYDROcodone-acetaminophen 5-325 mg Tablet 1 TAB PO (18:30)
[2021-09-10 18:31] VITALS: BP 147/83; PULSE 84; RESP 12; TEMP 37.1; O2SAT 96
== END 2021-09-10 18:33 | disposition home or self-care (01) ==
PROVIDERS: Emergency Provider Nurse Practitioner Family
DX: K04.7 Periapical abscess without sinus (principal)
CPT/HCPCS: 99283

== ENCOUNTER → 2022-04-25 07:49 | Outpatient (BNVA) | payer MEDICAID, SELFPAY | PROVIDERS: Visit Provider Surgery | DX: K62.5 Hemorrhage of anus and rectum (principal); Z87.19 Personal history of other diseases of the digestive system; R10.32 Left lower quadrant pain; G89.29 Other chronic pain | CPT/HCPCS: 99203 ==

== ENCOUNTER 2022-05-03 06:56 | Day surgery (SDC) | payer BC, MEDICAID, SELFPAY ==
[2022-05-01 10:32] VITALS: BMI 38.0
[2022-05-03 07:25] VITALS: BP 130/92; PULSE 94; RESP 18; TEMP 36.2; O2SAT 97
[2022-05-03] MEDS: sodium chloride 0.9% 1,000 ML 30 ML IV (07:37)
--- NOTE | 2022-05-03 07:56 | P.ANESASSM_ITS ---
Pre-Anesthetic Assessment Height/Weight: Height 1.73 m Weight 113.398 kg Temp Pulse Resp BP Pulse Ox O2 Del Method 97.1 F L 94 18 130/92 97 05/03/22 07:25 05/03/22 07:25 05/03/22 07:25 05/03/22 07:25 05/03/22 07:25 05/03/22 07:25 Preop Diagnosis: Bleeding per rectum and abdominal pain Operation Date: 05/03/22 08:30 Proposed Procedures p Colonoscopy 13467,Z87.19,K62.5(Not Applicable) - Henrik Xiong MD Familial anesthetic complications: None Was Beta Renny taken within 24 hours: N/A Was Clonidine taken within 24 hours: N/A Last intake: Intake Last Liquid Date 05/02/22 Last Liquid Time 21:00 Last Solid Date 05/01/22 Last Solid Time 19:00 Social No alcohol and No tobacco Vapes Exam alert, oriented x 3, clear to auscultation bilaterally and regular rate & rhythm Airway Mallampati: Class IV Dentition: chipped Pulmonary None reported CV/HEM None reported None reported Hepatic None reported GI None reported Metabolic Morbid Obesity [facility] [place] None reported Neuropsych None reported Anesthetic Plan ASA status: 2 Anesthesia: MAC Risk of > 500 ml blood loss (7ml/kg in children): No Medications/Allergies Home Medications Medication Instructions Recorded Confirmed Last Taken Type No Known Home Medications 05/01/22 05/01/22 Unknown History Allergies Allergy/AdvReac Type Severity Reaction Status Date / Time amoxicillin Allergy ALGY-Hives Verified 05/01/22 10:28 Penicillins Allergy ALGY-Hives Verified 05/01/22 10:28 Current Medications Generic Name Dose Route Start Last Admin Trade Name Freq PRN Reason Stop Dose Admin Sodium Chloride 1,000 mls @ 30 mls/hr 05/03/22 07:30 05/03/22 07:37 Sodium Chloride 0.9% IV 05/04/22 07:29 30 mls/hr .Q24H ARNOLD Administration PFSH Anesthesia Medical History Abdominal pain, chronic, left lower quadrant BRBPR (bright red blood per rectum) Chronic pain of right upper extremity Social History Smoking and tobacco status: current every day smoker (vaping, trying to quit smoking ) Data Anesthesia Cardiac Studies: No Data to Display
--- NOTE | 2022-05-03 08:16 | W.PM.OPSUD ---
Surgery/Procedure H&P Update DATE OF PROCEDURE: May 03, 2022 DATE H&P PERFORMED: 04/25/22 H&P UPDATE INFORMATION: I have reviewed H&P completed within last 30 days, I have examined patient prior to procedure and No changes to prior documentation PREOP DIAGNOSIS: Bleeding per rectum and abdominal pain PRIMARY INDICATION FOR PROCEDURE: The same PLANNED PROCEDURE: Operation Date: 05/03/22 08:30 Proposed Procedures p Colonoscopy [id number],Z87.19,K62.5(Not Applicable) - Henrik Xiong MD
[2022-05-03 08:40] VITALS: BP 113/81; PULSE 83; RESP 18; TEMP 36.1; O2SAT 96
--- NOTE | 2022-05-03 08:46 | ANE.PACU2 ---
Inpatient post-anesthesia follow up: Airway intact: Yes Vital signs: Temperature 97.0 F Pulse Rate 83 Respiratory Rate 18 Blood Pressure 113/81 Pulse Oximetry 96 Oxygen Delivery Me thod Room Air Oxygen Flow Rate Fraction of Inspir ed Oxygen Hydration adequate: Yes Nausea and vomiting: No Pain level: 1 Mental status: Baseline
[2022-05-03 08:55] VITALS: BP 131/64; PULSE 84; RESP 18; O2SAT 97
== END 2022-05-03 09:12 | disposition home or self-care (01) ==
PROVIDERS: Visit Provider Surgery
PROC: 0DJD8ZZ Inspection of Lower Intestinal Tract, Via Natural or Artificial Opening Endoscopic (ICD-10-PCS; CPT 45378; principal; 2022-05-03 08:30)
DX: K62.5 Hemorrhage of anus and rectum (principal); Z87.19 Personal history of other diseases of the digestive system; E66.01 Morbid (severe) obesity due to excess calories; Z68.38 Body mass index [BMI] 38.0-38.9, adult; F17.290 Nicotine dependence, other tobacco product, uncomplicated
CPT/HCPCS: 45378; J2704; J7030

== ENCOUNTER → 2022-05-22 19:01 | Outpatient (BNVA) | payer MEDICAID, SELFPAY | PROVIDERS: Referring Provider Family Medicine; Visit Provider Registered Nurse Neonatal Intensive Care | DX: Z20.822 Contact with and (suspected) exposure to COVID-19 (principal) | CPT/HCPCS: 87426 ==

== ENCOUNTER 2024-09-04 12:16 | Emergency (ER) | payer SELFPAY ==
--- NOTE | 2024-09-04 12:44 | ECG_ITS ---
[facility] Date: 2024-09-04 Pat Name: Ashkan Orta III Department: Room: Gender: Male Oncology Research Rn: : 1985 Requested By: Ethan Steen Order Number: [id number] Rochelle MD: Mikey Junior M.D. Measurements Intervals Singer Rate: 72 P: 32 NH: 170 QRS: 53 QRSD: 85 T: 56 QT: 347 QTc: 381 Interpretive Statements SINUS RHYTHM LOW QRS VOLTAGE IN PRECORDIAL LEADS [QRS DEFLECTION < 1.0 mV IN CHEST LEADS] No previous ECG available for comparison Electronically Signed On 09-04-2024 19:43:48 ANALYTICAL LAB ANALYST by Mikey Junior M.D. [email or web address]
[2024-09-04 12:48] VITALS: BP 136/80; PULSE 76; RESP 20; TEMP 36.7; O2SAT 95; BMI 38.0
--- NOTE | 2024-09-04 13:56 | XRR_ITS ---
PROCEDURE INFORMATION: Exam: XR Chest Exam date and time: 09/04/2024 2:27 PM Age: 38 years old Clinical indication: Cough and dyspnea; Additional info: Dyspnea/cough TECHNIQUE: Imaging protocol: Radiologic exam of the chest. Views: 1 view. COMPARISON: CR XR chest 1V portable [id number] 05/23/2021 10:11 AM FINDINGS: Lungs: Unremarkable. No consolidation. Pleural spaces: Unremarkable. No pleural effusion. No pneumothorax. Heart/Mediastinum: Unremarkable. No cardiomegaly. Bones/joints: Unremarkable. XR/XR chest 1V portable [id number] IMPRESSION: No acute findings.
[2024-09-04 15:19] LABS: Basophils # 0.1 10^3/uL (0.0-0.1); Basophils % 1.6 %; Eosinophils # 0.5 10^3/uL (0.0-0.8); Eosinophils % 6.9 %; Lymphocytes # 2.8 10^3/uL (0.8-4.8); Lymphocytes % 38.3 %; Mean Corpuscular HGB Conc 34.7 g/dL (30-55); Mean Corpuscular Volume 89.6 fl (82-101); Mean Platelet Volume 9.5 fL (7.4-10.4); Monocytes # 0.6 10^3/uL (0.2-0.9); Monocytes % 8.6 %; Neutrophils # 3.27 10^3/uL (1.8-7.7); Neutrophils % 44.5 %; Nucleated Red Blood Cells % 0 %; Platelet Count 334 10^3/cmm (157-399); Red Cell Distribution Width 12.3 % (12.1-15.1); White Blood Count 7.36 10^3/uL (3.29-11.43)
[2024-09-04 15:45] LABS: Alanine Aminotransferase 37 U/L (0-41); Albumin Level 4.3 g/dL (3.5-5.2); Alkaline Phosphatase 87 U/L (40-130); Anion Gap 17.3 (5-19); Aspartate Amino Transferase 32 U/L (0-40); Blood Urea Nitrogen 15 mg/dL (6-20); Calcium 9.1 mg/dL (8.5-10.5); Carbon Dioxide 24 mmol/L (22-29); Chloride 104 mmol/L (98-107); Creatinine Clr Calc Pharmacy 176.5698; Globulin 2.9 g/dL (1.3-4.6); Glomerular Filtration Rate 126.9 mL/min (90-130); Glucose 107 mg/dL (65-115); Osmolality Calculated 293 mOsm/kg (285-295); Potassium 4.3 mmol/L (3.5-5.1); Sodium 141 mmol/L (136-145); Total Bilirubin 0.2 mg/dL (0.15-1.2); Total Protein 7.2 g/dL (6.6-8.7)
[2024-09-04 16:16] VITALS: BP 156/70; PULSE 78; RESP 18; O2SAT 96
--- NOTE | 2024-09-04 16:32 | ED_ITS ---
HPI - SOB/Dyspnea 2 General: Chief Complaint: Shortness of Breath/Dyspnea Stated Complaint: SOB Time Seen by Provider: 09/04/24 16:02 History of Present Illness: HPI Narrative: 38-year-old male presents emergency room complaining wheezing congestion. 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 This is exacerbated his asthma. He was out of his inhaler he did get some relief from that he denies any fever sweats or chills she not having productive cough no chest pain no abdominal pain no vomiting or diarrhea Associated symptoms: Reports chest congestion; Deny abdominal pain, chest pain or fever(s) Related Data Previous Rx's Medication Instructions Recorded albuterol sulfate 90 mcg/actuation 2 inh inhalation Q4H PRN shortness 09/04/24 aerosol inhaler of breath or wheezing #18 grams methylprednisolone 4 mg tablets in See Rx Instructions PO .COMPLEX 09/04/24 a dose pack (Medrol (Saman)) #21 ea Allergies Allergy/AdvReac Type Severity Reaction Status Date / Time amoxicillin Allergy ALGY-Hives Verified 07/15/24 12:55 Penicillins Allergy ALGY-Hives Verified 07/15/24 12:55 Review of Systems 2 Const: Denies: fever(s) or chills Card: Denies: chest pain Resp: Reports: dyspnea, non-productive cough, wheezing and chest congestion GI: Denies: abdominal pain : Denies: dysuria, urinary frequency or urinary urgency Musc: Denies: neck pain or back pain Skin/Breast: Denies: rash PFSH ED 2 PFSH: Medical History BRBPR (bright red blood per rectum) Abdominal pain, chronic, left lower quadrant Chronic pain of right upper extremity Social History Smoking and tobacco/nicotine status: never used tobacco/nicotine Physical Exam 2 Const: GENERAL APPEARANCE: cooperative ORIENTATION/CONSCIOUSNESS: Yes awake, Yes oriented to person, Yes oriented to place and Yes oriented to time HENMT: COMMON NORMALS: normocephalic, atraumatic and hearing grossly normal bilaterally HEAD & SCALP: normocephalic and atraumatic Resp: COMMON NORMALS: normal respiratory effort, No retractions and No use of accessory muscles AUSCULTATION: wheezes Cardio: COMMON NORMALS: regular rate, regular rhythm and No murmurs present (Cardio) RATE: regular rate RHYTHM: regular rhythm GI: COMMON NORMALS: Soft to palpation and No hepatosplenomegaly present A USCULTATION: Yes normoactive bowel sounds PALPATION: Yes Soft to palpation, No Tenderness to palpation present (GI), No Guarding due to palpation present (GI) and Yes No hepatosplenomegaly present Extremity: COMMON NORMALS: normal to inspection, capillary refill normal, no clubbing, cyanosis or edema, no calf tenderness and no pedal edema Neuro: SENSORIUM/ORIENTATION: Yes oriented to person, Yes oriented to place and Yes oriented to time Skin: COMMON NORMALS: no rashes or lesions noted GENERAL SKIN EXAM: no rashes or lesions noted Course 2 Vital Signs: Vital signs: Vital Signs Temperature 98.0 F 09/04/24 12:48 Pulse Rate 71 09/04/24 17:51 Respiratory Rate 16 09/04/24 17:32 Blood Pressure 145/99 09/04/24 17:51 Pulse Oximetry 97 09/04/24 17:51 Oxygen Delivery Me thod Room Air 09/04/24 17:32 MDM - SOB/Dyspnea Medical Decision Making Patient had significant wheezing first arrived marked improvement after nebulizer treatments will discharge the patient home with steroid taper and refill an albuterol chest x-ray clear is not having productive cough discharge him home to follow-up with his primary care doctor within the week. Return if he has further problems. Medical Records I reviewed the patient's medical records. Lab Data I reviewed the patient's lab results. 09/04/24 14:28 09/04/24 14:28 Labs/Radiology: Radiology Impressions Chest X-Ray 09/04/24 13:56 IMPRESSION: No acute findings. Laboratory Results WBC 7.36 10^3/uL (3.29-11.43) 09/04/24 14:28 RBC 4.80 10^6/uL (3.85-5.65) 09/04/24 14:28 Hgb 14.90 g/dL (11.27-16.99) 09/04/24 14:28 Hct 43.0 % (37-53) 09/04/24 14: MCV 89.6 fl (82-101) 09/04/24 14: MCH 31.0 pg (27-33) 09/04/24 14: MCHC 34.7 g/dL (30-55) 09/04/24 14:28 RDW 12.3 % (12.1-15.1) 09/04/24 14:28 Plt Count 334 10^3/cmm (157-399) 09/04/24 14:28 MPV 9.5 fL (7.4-10.4) 09/04/24 14:28 Neut % (Auto) 44.5 % 09/04/24 14: Lymph % (Auto) 38.3 % 09/04/24 14:28 [place] % (Auto) 8.6 % 09/04/24 14: Eos % (Auto) 6.9 % 09/04/24 14: Baso % (Auto) 1.6 % 09/04/24 14: Neut # (Auto) 3.27 10^3/uL (1.8-7.7) 09/04/24 14:28 Lymph # (Auto) 2.8 10^3/uL (0.8-4.8) 09/04/24 14:28 [place] # (Auto) 0.6 10^3/uL (0.2-0.9) 09/04/24 14:28 Eos # (Auto) 0.5 10^3/uL (0.0-0.8) 09/04/24 14: Baso # (Auto) 0.1 10^3/uL (0.0-0.1) 09/04/24 14:28 Nucleated RBC % (auto) 0 % 09/04/24 14: Nucleated RBCs # 0.0 /100WBC 09/04/24 14:28 Sodium 141 mmol/L (136-145) 09/04/24 14:28 Potassium 4.3 mmol/L (3.5-5.1) 09/04/24 14:28 Chloride 104 mmol/L (98-107) 09/04/24 14:28 Carbon Dioxide 24 mmol/L (22-29) 09/04/24 14:28 Anion Gap 17.3 (5-19) 09/04/24 14:28 BUN 15 mg/dL (6-20) 09/04/24 14:28 Creatinine 0.7 mg/dL (0.7-1.2) 09/04/24 14:28 GFR Calculation 126.9 mL/min (90-130) 09/04/24 14:28 Glucose 107 mg/dL (65-115) 09/04/24 14:28 Calculated Osmolality 293 mOsm/kg (285-295) 09/04/24 14:28 Calcium 9.1 mg/dL (8.5-10.5) 09/04/24 14:28 Total Bilirubin 0.2 mg/dL (0.15-1.2) 09/04/24 14:28 AST 32 U/L (0-40) 09/04/24 14:28 ALT 37 U/L (0-41) 09/04/24 14:28 Alkaline Phosphatase 87 U/L (40-130) 09/04/24 14:28 Total Protein 7.2 g/dL (6.6-8.7) 09/04/24 14:28 Albumin 4.3 g/dL (3.5-5.2) 09/04/24 14:28 Globulin 2.9 g/dL (1.3-4.6) 09/04/24 14:28 Coronavirus (PCR) Negative (Negative) 09/04/24 16:10 Influenza A (PCR) Negative (Negative) 09/04/24 16:10 Influenza Type B (PCR) Negative (Negative) 09/04/24 16:10 RSV (PCR) Negative (Negative) 09/04/24 16:10 All radiology interpretation(s) finalized by discharge Discharge Plan Discharge Patient Disposition: Home Clinical Impression: Asthma with exacerbation Condition: Stable Prescriptions: New methylprednisolone [Medrol (Saman)] 4 mg tablets,dose pack See Rx Instructions .ROUTE .COMPLEX Qty: 21 0RF Rx Instructions: orally per package directions albuterol sulfate 90 mcg/actuation HFA aerosol inhaler 2 inh INHALATION Q4H PRN (Reason: shortness of breath or wheezing) Qty: 18 0RF Discharge Orders: Discharge ED (Routine); Ordered 09/04/24 Ordered By: Ethan Clifford Discharge Diet: Usual diet Discharge Activity: Increase activity as tolerated Patient Instructions: Opioid Safety, Pain Management Activity Restrictions/Additional Instructions: Thank you for choosing [facility] for your healthcare needs today. It is very important that you follow up as instructed or that you return to the Emergency Department should you have concerns or if your condition changes or worsens in any way. You were seen in the emergency room with complaint of cough and shortness of breath. On admission to the emergency room you had a significant amount of wheezing. Your chest x-ray is normal. Wheezing improved markedly after a breathing treatment. You are also given steroids. Recommend that he start the oral steroid taper tomorrow use the albuterol every 4 hours while awake. You are given a note to be off work for 2 days. You should take your inhaler with you when you return to work to use as needed. Stand Alone Forms: Work/School Release Coding Level of Care Code ED Global Clinical Leader for Jocelynn Estrella
[2024-09-04 16:53] VITALS: PULSE 66; RESP 16; O2SAT 98
[2024-09-04 16:55] LABS: Covid PCR NEGATIVE (Negative); Influenza A NEGATIVE (Negative); Influenza B NEGATIVE (Negative); Respiratory Syncytial Virus Ce NEGATIVE (Negative)
[2024-09-04] MEDS: methylPREDNISolone sod succ 125 mg/2 mL INJ IM (16:55)
[2024-09-04] MEDS: ipratropium-albuterol 3 mL Neb INHALATION (16:56)
[2024-09-04 16:57] VITALS: PULSE 80
[2024-09-04 17:32] VITALS: BP 159/91; PULSE 77; RESP 16; O2SAT 99
[2024-09-04 17:51] VITALS: BP 145/99; PULSE 71; O2SAT 97
== END 2024-09-04 17:56 | disposition home or self-care (01) ==
PROVIDERS: Emergency Provider Family Medicine
DX: J45.901 Unspecified asthma with (acute) exacerbation (principal); Z11.52 Encounter for screening for COVID-19
CPT/HCPCS: 0241U; 36415; 71045; 80053; 85025; 93005; 94640; 96372; 99285; J2919

== ENCOUNTER 2024-09-27 18:31 | Emergency (ER) | payer SELFPAY ==
[2024-09-27] VITALS (7 sets, daily range): BP systolic 116–140; BP diastolic 80–96; PULSE 108–119; RESP 16–20; TEMP 37.2; O2SAT 92–97; BMI 38.0
--- NOTE | 2024-09-27 18:36 | XRR_ITS ---
PROCEDURE INFORMATION: Exam: XR Chest Exam date and time: 09/27/2024 7:10 PM Age: 38 years old Clinical indication: Shortness of breath; Patient HX: SOB; Cough; Fever TECHNIQUE: Imaging protocol: Radiologic exam of the chest. Views: 1 view. COMPARISON: CR XR chest 1V portable [id number] 09/04/2024 2:27 PM FINDINGS: Lungs: Unremarkable. No consolidation. Pleural spaces: Unremarkable. No pleural effusion. No pneumothorax. Heart/Mediastinum: Unremarkable. No cardiomegaly. Bones/joints: Unremarkable. XR/XR chest 1V portable [id number] IMPRESSION: No acute findings.
[2024-09-27 19:36] LABS: Basophils # 0.1 10^3/uL (0.0-0.1); Basophils % 1.1 %; Eosinophils # 0.5 10^3/uL (0.0-0.8); Eosinophils % 4.8 %; Lymphocytes # 1.9 10^3/uL (0.8-4.8); Lymphocytes % 19.5 %; Mean Corpuscular Hemoglobin 31.5 pg (27-33); Mean Corpuscular Volume 92.6 fl (82-101); Mean Platelet Volume 9.4 fL (7.4-10.4); Monocytes # 0.6 10^3/uL (0.2-0.9); Monocytes % 6.3 %; Neutrophils # 6.48 10^3/uL (1.8-7.7); Neutrophils % 68.1 %; Nucleated Red Blood Cells % 0 %; Platelet Count 281 10^3/cmm (157-399); Red Blood Count 4.86 10^6/uL (3.85-5.65); Red Cell Distribution Width 12.6 % (12.1-15.1); White Blood Count 9.51 10^3/uL (3.29-11.43)
[2024-09-27 20:00] LABS: Alanine Aminotransferase 40 U/L (0-41); Albumin Level 4.2 g/dL (3.5-5.2); Alkaline Phosphatase 84 U/L (40-130); Anion Gap 16.8 (5-19); Aspartate Amino Transferase 21 U/L (0-40); Blood Urea Nitrogen 10 mg/dL (6-20); Calcium 9.4 mg/dL (8.5-10.5); Carbon Dioxide 25 mmol/L (22-29); Chloride 103 mmol/L (98-107); Creatinine Clr Calc Pharmacy 154.4986; Globulin 3.1 g/dL (1.3-4.6); Glomerular Filtration Rate 108.8 mL/min (90-130); Glucose 99 mg/dL (65-115); NT Pro B Type Natriuretic Pept 42 pg/mL (0-125); Osmolality Calculated 291 mOsm/kg (285-295); Potassium 3.8 mmol/L (3.5-5.1); Sodium 141 mmol/L (136-145); Total Bilirubin 0.2 mg/dL (0.15-1.2); Total Protein 7.3 g/dL (6.6-8.7)
--- NOTE | 2024-09-27 20:00 | ECG_ITS ---
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 Measurements Intervals [place] Rate: 112 P: 56 ID: [id number] QRS: 52 QRSD: 85 T: 46 QT: 297 QTc: 406 Interpretive Statements SINUS TACHYCARDIA ABNORMAL RHYTHM ECG Compared to ECG 09/04/2024 12:44:57 Sinus rhythm no longer present Electronically Signed On 09-29-2024 23:48:36 HISTOTECHNOLOGIST by Mikey Junior M.D. [email or web address]
--- NOTE | 2024-09-27 20:02 | ED_ITS ---
HPI - SOB/Dyspnea 2 General: Chief Complaint: Shortness of Breath/Dyspnea Stated Complaint: SOB Time Seen by Provider: 09/27/24 19:52 Source: patient Mode of arrival: ambulatory Limitations: no limitations History of Present Illness: HPI Narrative: 38-year-old male states that he has been having cough burning in his lungs wheezing that started today. He has been seen here for the same states he has not ever been officially diagnosed with asthma as he does not have a PCP he has a chronic smoker. He has had a dry cough denies any fever denies any worsening proving factors Associated symptoms: Deny abdominal pain, chest pain, fever(s), nausea or vomiting Related Data Previous Rx's Medication Instructions Recorded albuterol sulfate 90 mcg/actuation 2 inh inhalation Q4H PRN shortness 09/04/24 aerosol inhaler of breath or wheezing #18 grams methylprednisolone 4 mg tablets in See Rx Instructions PO .COMPLEX 09/04/24 a dose pack (Medrol (Saman)) #21 ea albuterol sulfate 90 mcg/actuation 2 inh inhalation Q6H PRN shortness 09/27/24 aerosol inhaler of breath or wheezing #8 grams prednisone 50 mg tablet 50 mg PO DAILY #5 tabs 09/27/24 Allergies Allergy/AdvReac Type Severity Reaction Status Date / Time amoxicillin Allergy ALGY-Hives Verified 09/27/24 18:59 Penicillins Allergy ALGY-Hives Verified 09/27/24 18:59 Review of Systems 2 Const: Denies: fever(s), chills, body aches or change in appetite ENMT: Denies: throat pain or dental pain Card: Denies: chest pain Resp: Reports: dyspnea, non-productive cough and wheezing GI: Denies: abdominal pain, nausea, vomiting or diarrhea Musc: Denies: neck pain or back pain Skin/Breast: Denies: rash Neuro: Denies: headache(s) PFSH ED 2 PFSH: Medical History BRBPR (bright red blood per rectum) Abdominal pain, chronic, left lower quadrant Chronic pain of right upper extremity Social History Smoking and tobacco/nicotine status: never used tobacco/nicotine Physical Exam 2 Const: COMMON NORMALS: no acute distress, patient oriented x3 and healthy appearing HENMT: COMMON NORMALS: normocephalic and atraumatic HEAD & SCALP: n ormocephalic and atraumatic Neck/C-Spine: COMMON NORMALS: full ROM and supple Chest: COMMONS NORMALS: normal inspection of the chest Resp: COMMON NORMALS: No retractions and No use of accessory muscles A USCULTATION: wheezes Cardio: COMMON NORMALS: regular rhythm and No murmurs present (Cardio) R ATE: tachycardic RHYTHM: regular rhythm GI: COMMON NORMALS: Normal to inspection, nondistended, normoactive bowel sounds present, Soft to palpation, non-tender and no masses PALPATION: Yes Soft to palpation Extremity: COMMON NORMALS: normal to inspection and full ROM Neuro: COMMON NORMALS: patient oriented x3, moves all extremities and no focal motor deficits Psych: COMMON NORMALS: mental status grossly normal, Normal thought process present and cooperative THOUGHT PROCESS: Normal thought process present Skin: COMMON NORMALS: no rashes or lesions noted and no wounds GENERAL SKIN EXAM: no rashes or lesions noted Course 2 Vital Signs: Vital signs: Vital Signs Temperature 99.0 F 09/27/24 18:56 Pulse Rate 119 H 09/27/24 21:50 Respiratory Rate 17 09/27/24 21:28 Blood Pressure 138/80 09/27/24 21:50 Pulse Oximetry 92 09/27/24 21:50 Oxygen Delivery Me thod Room Air 09/27/24 21:28 MDM - SOB/Dyspnea Medical Decision Making Patient presents here with dyspnea likely reactive airway disease he feels much improved here after breathing treatment no signs of pneumonia we will place him on 5 days of steroids will prescribe him albuterol inhaler he needs to follow-up with PCP return if worsening he understands agrees to plan. Medical Records I reviewed the patient's medical records. Lab Data I reviewed the patient's lab results. 09/27/24 19:20 09/27/24 19:20 Labs/Radiology: Radiology Impressions Chest X-Ray 09/27/24 18:36 IMPRESSION: No acute findings. Laboratory Results WBC 9.51 10^3/uL (3.29-11.43) 09/27/24 19:20 RBC 4.86 10^6/uL (3.85-5.65) 09/27/24 19:20 Hgb 15.30 g/dL (11.27-16.99) 09/27/24 19:20 Hct 45.0 % (37-53) 09/27/24 19:20 MCV 92.6 fl (82-101) 09/27/24 19:20 MCH 31.5 pg (27-33) 09/27/24 19:20 MCHC 34.0 g/dL (30-55) 09/27/24 19:20 RDW 12.6 % (12.1-15.1) 09/27/24 19:20 Plt Count 281 10^3/cmm (157-399) 09/27/24 19:20 MPV 9.4 fL (7.4-10.4) 09/27/24 19:20 Neut % (Auto) 68.1 % 09/27/24 19:20 Lymph % (Auto) 19.5 % 09/27/24 19:20 [place] % (Auto) 6.3 % 09/27/24 19:20 Eos % (Auto) 4.8 % 09/27/24 19:20 Baso % (Auto) 1.1 % 09/27/24 19:20 Neut # (Auto) 6.48 10^3/uL (1.8-7.7) 09/27/24 19:20 Lymph # (Auto) 1.9 10^3/uL (0.8-4.8) 09/27/24 19:20 [place] # (Auto) 0.6 10^3/uL (0.2-0.9) 09/27/24 19:20 Eos # (Auto) 0.5 10^3/uL (0.0-0.8) 09/27/24 19:20 Baso # (Auto) 0.1 10^3/uL (0.0-0.1) 09/27/24 19:20 Nucleated RBC % (auto) 0 % 09/27/24 19:20 Nucleated RBCs # 0.0 /100WBC 09/27/24 19:20 Sodium 141 mmol/L (136-145) 09/27/24 19:20 Potassium 3.8 mmol/L (3.5-5.1) 09/27/24 19:20 Chloride 103 mmol/L (98-107) 09/27/24 19:20 Carbon Dioxide 25 mmol/L (22-29) 09/27/24 19:20 Anion Gap 16.8 (5-19) 09/27/24 19:20 BUN 10 mg/dL (6-20) 09/27/24 19:20 Creatinine 0.8 mg/dL (0.7-1.2) 09/27/24 19:20 GFR Calculation 108.8 mL/min (90-130) 09/27/24 19:20 Glucose 99 mg/dL (65-115) 09/27/24 19:20 Calculated Osmolality 291 mOsm/kg (285-295) 09/27/24 19:20 Calcium 9.4 mg/dL (8.5-10.5) 09/27/24 19:20 Total Bilirubin 0.2 mg/dL (0.15-1.2) 09/27/24 19:20 AST 21 U/L (0-40) 09/27/24 19:20 ALT 40 U/L (0-41) 09/27/24 19:20 Alkaline Phosphatase 84 U/L (40-130) 09/27/24 19:20 NT-Pro-B Natriuret Pep 42 pg/mL (0-125) 09/27/24 19:20 Total Protein 7.3 g/dL (6.6-8.7) 09/27/24 19:20 Albumin 4.2 g/dL (3.5-5.2) 09/27/24 19:20 Globulin 3.1 g/dL (1.3-4.6) 09/27/24 19:20 Influenza Type A Ag negative (Negative) 09/27/24 20:10 Influenza Type B Ag negative (Negative) 09/27/24 20:10 SARS-CoV-2 Ag (Rapid) negative (Negative) 09/27/24 20:10 XR interpretation done by ED provider, pending radiology final review ED provider radiology interpretation(s): cxr no acute abnormality EKG Data EKG 1: I personally reviewed and interpreted this EKG as follows: EKG Interpretation Date: 09/27/24 EKG interpretation time: 19:58 Interpretation: sinus tach hr [address] elevation qrs 85 [id number] Discharge Plan Discharge Patient Disposition: Home Clinical Impression: Reactive airway disease Qualifiers: Asthma severity: unspecified severity Condition: Stable Prescriptions: New prednisone 50 mg tablet 50 mg PO DAILY Qty: 5 0RF albuterol sulfate 90 mcg/actuation HFA aerosol inhaler 2 inh INHALATION Q6H PRN (Reason: shortness of breath or wheezing) Qty: 8 1RF No Action methylprednisolone [Medrol (Saman)] 4 mg tablets,dose pack See Rx Instructions .ROUTE .COMPLEX Qty: 21 0RF Rx Instructions: orally per package directions albuterol sulfate 90 mcg/actuation HFA aerosol inhaler 2 inh INHALATION Q4H PRN (Reason: shortness of breath or wheezing) Qty: 18 0RF Discharge Orders: Discharge ED (Routine); Ordered 09/27/24 Ordered By: Hardeep Conrad Discharge Diet: Advance as tolerated Discharge Activity: Resume usual activity Patient Instructions: Reactive Airways Disease (ED), Wheezing (ED) Stand Alone Forms: Work/School Release Coding Level of Care Code ED Cd Technician for Jocelynn Estrella
[2024-09-27] MEDS: methylPREDNISolone sod succ 125 mg/2 mL INJ IVP (20:26)
[2024-09-27] MEDS: ipratropium-albuterol 3 mL Neb INHALATION (20:47)
[2024-09-27 20:52] LABS: Influenza A by IFA negative (Negative); Influenza B by IFA negative (Negative); SARS Covid-2 Antigen negative (Negative)
[2024-09-27] MEDS: albuterol 8 gm MDI 2 PUFF INHALATION (21:27)
== END 2024-09-27 21:51 | disposition home or self-care (01) ==
PROVIDERS: Emergency Provider Emergency Medicine
DX: J45.909 Unspecified asthma, uncomplicated (principal); Z11.52 Encounter for screening for COVID-19
CPT/HCPCS: 36415; 71045; 80053; 83880; 85025; 87426; 87804; 93005; 94640; 96374; 99285; J2919; J3535

== ENCOUNTER 2025-02-02 03:59 | Emergency (ER) | payer SELFPAY ==
[2025-02-02] VITALS (8 sets, daily range): BP systolic 114–129; BP diastolic 62–80; PULSE 64–75; RESP 16–18; TEMP 36.6; O2SAT 93–99; BMI 40.1
--- NOTE | 2025-02-02 04:40 | XRR_ITS ---
PROCEDURE INFORMATION: Exam: XR Chest Exam date and time: 02/02/2025 5:29 AM Age: 39 years old Clinical indication: Cough and dyspnea; Additional info: Dyspnea/cough TECHNIQUE: Imaging protocol: Radiologic exam of the chest. Views: 1 view. COMPARISON: CR XR chest 1V portable [id number] 09/27/2024 7:10 PM FINDINGS: Lungs: Unremarkable. No consolidation. Pleural spaces: Unremarkable. No pleural effusion. No pneumothorax. Heart/Mediastinum: Unremarkable. No cardiomegaly. Bones/joints: Unremarkable. XR/XR chest 1V portable [id number] IMPRESSION: No acute cardiopulmonary findings.
[2025-02-02 04:47] LABS: Basophils # 0.1 10^3/uL (0.0-0.1); Basophils % 1.8 %; Eosinophils # 0.5 10^3/uL (0.0-0.8); Eosinophils % 6.6 %; Lymphocytes # 3.2 10^3/uL (0.8-4.8); Lymphocytes % 47.1 %; Mean Corpuscular HGB Conc 34.2 g/dL (30-55); Mean Corpuscular Hemoglobin 30.9 pg (27-33); Mean Corpuscular Volume 90.5 fl (82-101); Mean Platelet Volume 9.3 fL (7.4-10.4); Monocytes # 0.7 10^3/uL (0.2-0.9); Monocytes % 9.6 %; Neutrophils # 2.38 10^3/uL (1.8-7.7); Neutrophils % 34.8 %; Nucleated Red Blood Cells % 0 %; Platelet Count 266 10^3/cmm (157-399); Red Blood Count 4.75 10^6/uL (3.85-5.65); Red Cell Distribution Width 12.3 % (12.1-15.1); White Blood Count 6.84 10^3/uL (3.29-11.43)
[2025-02-02 05:04] LABS: Alanine Aminotransferase 35 U/L (0-41); Alkaline Phosphatase 71 U/L (40-130); Anion Gap 14.1 (5-19); Aspartate Amino Transferase 23 U/L (0-40); Blood Urea Nitrogen 12 mg/dL (6-20); Calcium 8.9 mg/dL (8.5-10.5); Carbon Dioxide 26 mmol/L (22-29); Chloride 106 mmol/L (98-107); Creatinine Clr Calc Pharmacy 172.5394; Globulin 2.8 g/dL (1.3-4.6); Glomerular Filtration Rate 108.2 mL/min (90-130); Glucose 106 mg/dL (65-115); Osmolality Calculated 294 mOsm/kg (285-295); Potassium 4.1 mmol/L (3.5-5.1); Sodium 142 mmol/L (136-145); Total Bilirubin 0.2 mg/dL (0.15-1.2); Total Protein 6.8 g/dL (6.6-8.7)
[2025-02-02] MEDS: ipratropium-albuterol 3 mL Neb INHALATION ×2 (05:04→07:48)
--- NOTE | 2025-02-02 07:00 | ED_ITS ---
HPI - SOB/Dyspnea 2 General: Chief Complaint: Shortness of Breath/Dyspnea Stated Complaint: SOB Can't Breath Time Seen by Provider: 02/02/25 04:36 History of Present Illness: HPI Narrative: 39-year-old male presents to the emergen cy room with complaints of shortness of breath and wheezing. Began overnight. He does use albuterol at home. Nonproductive cough, no sputum and no hemoptysis. Has been seen several times in the past and received steroid tapers and albuterol which have improved things. Patient is an intermittent smoker. Associated symptoms: Deny abdominal pain, chest pain or fever(s) Related Data Previous Rx's ?Medication ?Instructions ?Recorded albuterol sulfate 90 mcg/actuation 2 inh inhalation Q4 H PRN shortness 09/04/24 aerosol inhaler of breath or wheezing #18 gr ams methylprednisolone 4 mg tablets in See Rx Instructions PO .COMPLEX 09/04/24 a dose pack (Medrol (Saman)) #21 ea albuterol sulfate 90 mcg/actuation 2 inh inhalation Q6 H PRN shortness 09/27/24 aerosol inhaler of breath or wheezing #8 gra ms prednisone 50 mg tablet 50 mg PO DAILY #5 tabs 09/27 albuterol sulfate 90 mcg/actuation 2 inh inhalation Q4 H PRN shortness 02/02/25 aerosol inhaler of breath or wheezing #18 gr ams methylprednisolone 4 mg tablets in See Rx Instructions PO .COMPLEX 02/02/25 a dose pack (Medrol (Saman)) #21 ea Allergies Allergy/AdvReac Type Severity Reaction Status Date / Time amoxicillin Allergy ALGY-Hives Verified 09/27/24 18:59 Penicillins Allergy ALGY-Hives Verified 09/27/24 18:59 Review of Systems 2 Const: Denies: fever(s) or chills Card: Denies: chest pain Resp: Reports: dyspnea, non-productive cough and wheezing GI: Denies: abdominal pain : Denies: dysuria, urinary frequency or urinary urgency Musc: Denies: neck pain or back pain Skin/Breast: Denies: rash PFSH ED 2 PFSH: Medical History BRBPR (bright red blood per rectum) Abdominal pain, chronic, left lower quadrant Chronic pain of right upper extremity Social History Smoking and tobacco/nicotine status: never used tobacco/nicotine Physical Exam 2 Const: GENERAL APPEARANCE: cooperative ORIENTATION/CONSCIOUSNESS: Yes awake, Yes oriented to person, Yes oriented to place and Yes oriented to time HENMT: COMMON NORMALS: normocephalic, atraumatic and hearing grossly normal bilaterally HEAD & SCALP: normocephalic and atraumatic Resp: COMMON NORMALS: normal respiratory effort, No retractions and No use of accessory muscles AUSCULTATION: wheezes Cardio: COMMON NORMALS: regular rate, regular rhythm and No murmurs present (Cardio) RATE: regular rate RHYTHM: regular rhythm GI: COMMON NORMALS: Soft to palpation and No hepatosplenomegaly present A USCULTATION: Yes normoactive bowel sounds PALPATION: Yes Soft to palpation, No Tenderness to palpation present (GI), No Guarding due to palpation present (GI) and Yes No hepatosplenomegaly present Extremity: COMMON NORMALS: normal to inspection, capillary refill normal, no clubbing, cyanosis or edema, no calf tenderness and no pedal edema Neuro: SENSORIUM/ORIENTATION: Yes oriented to person, Yes oriented to place and Yes oriented to time Skin: COMMON NORMALS: no rashes or lesions noted GENERAL SKIN EXAM: no rashes or lesions noted Course 2 Vital Signs: Vital signs: Vital Signs Temperature 97.8 F 02/02/25 04:21 Pulse Rate 75 02/02/25 08:05 Respiratory Rate 18 02/02/25 07:49 Blood Pressure 114/62 02/02/25 08:05 Pulse Oximetry 98 02/02/25 08:05 Oxygen Delivery Me thod Room Air 02/02/25 07:49 MDM - SOB/Dyspnea Medical Decision Making Acute asthma exacerbation. Will start on steroid taper use albuterol regularly chest x-ray was negative no indication for antibiotics at this point follow-up with primary care may need further evaluation or consideration of initiating long-term treatments Lab Data I reviewed the patient's lab results. 02/02/25 04:41 02/02/25 04:41 Labs/Radiology: Radiology Impressions Chest X-Ray 02/02/25 04:40 IMPRESSION: No acute cardiopulmonary findings. Laboratory Results WBC 6.84 10^3/uL (3.29-11.43) 02/02/25 04:41 RBC 4.75 10^6/uL (3.85-5.65) 02/02/25 04:41 Hgb 14.70 g/dL (11.27-16.99) 02/02/25 04:41 Hct 43.0 % (37-53) 02/02/25 04:41 MCV 90.5 fl (82-101) 02/02/25 04:41 MCH 30.9 pg (27-33) 02/02/25 04:41 MCHC 34.2 g/dL (30-55) 02/02/25 04:41 RDW 12.3 % (12.1-15.1) 02/02/25 04:41 Plt Count 266 10^3/cmm (157-399) 02/02/25 04:41 MPV 9.3 fL (7.4-10.4) 02/02/25 04:41 Neut % (Auto) 34.8 % 02/02/25 04:41 Lymph % (Auto) 47.1 % 02/02/25 04:41 [place] % (Auto) 9.6 % 02/02/25 04:41 Eos % (Auto) 6.6 % 02/02/25 04:41 Baso % (Auto) 1.8 % 02/02/25 04:41 Neut # (Auto) 2.38 10^3/uL (1.8-7.7) 02/02/25 04:41 Lymph # (Auto) 3.2 10^3/uL (0.8-4.8) 02/02/25 04:41 [place] # (Auto) 0.7 10^3/uL (0.2-0.9) 02/02/25 04:41 Eos # (Auto) 0.5 10^3/uL (0.0-0.8) 02/02/25 04:41 Baso # (Auto) 0.1 10^3/uL (0.0-0.1) 02/02/25 04:41 Nucleated RBC % (auto) 0 % 02/02/25 04:41 Nucleated RBCs # 0.0 /100WBC 02/02/25 04:41 Sodium 142 mmol/L (136-145) 02/02/25 04:41 Potassium 4.1 mmol/L (3.5-5.1) 02/02/25 04:41 Chloride 106 mmol/L (98-107) 02/02/25 04:41 Carbon Dioxide 26 mmol/L (22-29) 02/02/25 04:41 Anion Gap 14.1 (5-19) 02/02/25 04:41 BUN 12 mg/dL (6-20) 02/02/25 04:41 Creatinine 0.8 mg/dL (0.7-1.2) 02/02/25 04:41 GFR Calculation 108.2 mL/min (90-130) 02/02/25 04:41 Glucose 106 mg/dL (65-115) 02/02/25 04:41 Calculated Osmolality 294 mOsm/kg (285-295) 02/02/25 04:41 Calcium 8.9 mg/dL (8.5-10.5) 02/02/25 04:41 Total Bilirubin 0.2 mg/dL (0.15-1.2) 02/02/25 04:41 AST 23 U/L (0-40) 02/02/25 04:41 ALT 35 U/L (0-41) 02/02/25 04:41 Alkaline Phosphatase 71 U/L (40-130) 02/02/25 04:41 Total Protein 6.8 g/dL (6.6-8.7) 02/02/25 04:41 Albumin 4.0 g/dL (3.5-5.2) 02/02/25 04:41 Globulin 2.8 g/dL (1.3-4.6) 02/02/25 04:41 Urine Color Yellow (Yellow) 02/02/25 06:40 Urine Appearance Clear (CLEAR) 02/02/25 06:40 Urine pH 5.0 (5-7) 02/02/25 06:40 Ur Specific [place] 1.023 (1.005-1.030) 02/02/25 06:40 Urine Protein Negative (Negative) 02/02/25 06:40 Urine Glucose (UA) Negative (Normal) 02/02/25 06:40 Urine Ketones Negative (Negative) 02/02/25 06:40 Urine Blood Negative (Negative) 02/02/25 06:40 Urine Nitrate Negative (Negative) 02/02/25 06:40 Urine Bilirubin Negative (Negative) 02/02/25 06:40 Urine Urobilinogen 1.0 mg/dL (Negative) 02/02/25 06:40 Ur Leukocyte Esterase Negative (Negative) 02/02/25 06:40 Urine RBC 0-2 /hpf (0-2) 02/02/25 06:40 Urine WBC 0-5 /hpf (0-5) 02/02/25 06:40 Ur Squamous Epith Cells 0-5 /hpf (0-5) 02/02/25 06:40 Amorphous Sediment Not Reportable 02/02/25 06:40 Urine Bacteria None seen /hpf (NONE) 02/02/25 06:40 Hyaline Casts 0.81 /lpf 02/02/25 06:40 Influenza A (PCR) Negative (Negative) 02/02/25 06:40 Influenza Type B (PCR) Negative (Negative) 02/02/25 06:40 RSV (PCR) Negative (Negative) 02/02/25 06:40 SARS-CoV-2 (PCR) Negative (Negative) 02/02/25 06:40 All radiology interpretation(s) finalized by discharge Discharge Plan Discharge Patient Disposition: Home Clinical Impression: Asthma with exacerbation Condition: Stable Prescriptions: New methylprednisolone [Medrol (Saman)] 4 mg tablets,dose pack See Rx Instructions .ROUTE .COMPLEX Qty: 21 0RF Rx Instructions: orally per package directions albuterol sulfate 90 mcg/actuation HFA aerosol inhaler 2 inh INHALATION Q4H PRN (Reason: shortness of breath or wheezing) Qty: 18 0RF No Action methylprednisolone [Medrol (Saman)] 4 mg tablets,dose pack See Rx Instructions .ROUTE .COMPLEX Qty: 21 0RF Rx Instructions: orally per package directions albuterol sulfate 90 mcg/actuation HFA aerosol inhaler 2 inh INHALATION Q4H PRN (Reason: shortness of breath or wheezing) Qty: 18 0RF prednisone 50 mg tablet 50 mg PO DAILY Qty: 5 0RF albuterol sulfate 90 mcg/actuation HFA aerosol inhaler 2 inh INHALATION Q6H PRN (Reason: shortness of breath or wheezing) Qty: 8 1RF Discharge Orders: Discharge ED (Routine); Ordered 02/02/25 Ordered By: Ethan Clifford Discharge Diet: Usual diet Discharge Activity: Increase activity as tolerated Patient Instructions: Opioid Safety, Pain Management Activity Restrictions/Additional Instructions: Thank you for choosing [facility] for your healthcare needs today. It is very important that you follow up as instructed or that you return to the Emergency Department should you have concerns or if your condition changes or worsens in any way. You were seen in the emergency room with complaints of shortness of breath and wheezing. Chest x-ray was normal and your labs were otherwise normal. Recommend starting a steroid taper use albuterol as needed follow-up with your primary care doctor for further evaluation. Reviewing the chart it you have been in several times with symptoms similar to this you would benefit from further evaluation including possible pulmonary function testing. Your primary care doctor can reevaluate within the next 7 to 10 days and discussed further evaluation as appropriate Stand Alone Forms: Work/School Release Print Language: Sammarinese Coding Level of Care Code ED Construction Quality Control Manager for Jocelynn Estrella
[2025-02-02 07:48] LABS: Bilirubin Urine Negative (Negative); Blood Urine Negative (Negative); Glucose Urine UA Negative (Normal); Ketones Urine Negative (Negative); Leukocyte Esterase Urine Negative (Negative); Nitrate Urine Negative (Negative); Protein Urine Negative (Negative); Specific Gravity, Urine 1.023 (1.005-1.030); Urine Appearance Clear (CLEAR); Urine Color Yellow (Yellow)
[2025-02-02 07:50] LABS: Add Urine Microscopic? YES; Bacteria Urine None Seen /hpf; Hyaline Casts Urine 0.81 /lpf; RBC Urine 0-2 /hpf (0-2); Squamous Epithelial Cell Urine 0-5 /hpf (0-5); WBC Urine 0-5 /hpf (0-5)
[2025-02-02 08:08] LABS: Influenza A NEGATIVE (Negative); Influenza B NEGATIVE (Negative); Respiratory Syncytial Virus Ce NEGATIVE (Negative); SARS-CoV-2 PCR NEGATIVE (Negative)
== END 2025-02-02 08:05 | disposition home or self-care (01) ==
PROVIDERS: Emergency Provider Family Medicine
DX: J45.901 Unspecified asthma with (acute) exacerbation (principal); Z11.52 Encounter for screening for COVID-19; R05.9 Cough, unspecified
CPT/HCPCS: 36415; 71045; 80053; 81001; 85025; 87637; 94640; 99285; J9999

== ENCOUNTER 2025-02-18 23:15 | Emergency (ER) | payer SELFPAY ==
[2025-02-18 23:27] VITALS: BP 136/77; PULSE 82; RESP 22; TEMP 36.7; O2SAT 97
--- NOTE | 2025-02-18 23:34 | ECG_ITS ---
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
--- NOTE | 2025-02-18 23:47 | XRR_ITS ---
PROCEDURE INFORMATION: Exam: XR Chest Exam date and time: 02/18/2025 11:51 PM Age: 39 years old Clinical indication: Dyspnea; Additional info: SOB TECHNIQUE: Imaging protocol: Radiologic exam of the chest. Views: 1 view. COMPARISON: CR (CHEST, ) 02/02/2025 5:29 AM FINDINGS: Lungs: Clear, symmetrically inflated lungs. Pleural spaces: No pleural effusion. No pneumothorax. Heart/Mediastinum: Cardiac silhouette is normal in size for technique. Bones/joints: Age appropriate. XR/XR chest 1V portable [id number] IMPRESSION: No acute cardiopulmonary abnormality.
[2025-02-19 00:10] LABS: Basophils # 0.1 10^3/uL (0.0-0.1); Basophils % 1.6 %; Eosinophils # 0.9 10^3/uL (0.0-0.8); Eosinophils % 11.7 %; Hematocrit 40.3 % (37-53); Lymphocytes # 3.3 10^3/uL (0.8-4.8); Lymphocytes % 41.3 %; Mean Corpuscular Hemoglobin 31.1 pg (27-33); Mean Platelet Volume 9.1 fL (7.4-10.4); Monocytes # 0.5 10^3/uL (0.2-0.9); Monocytes % 6.5 %; Neutrophils % 38.7 %; Nucleated Red Blood Cells % 0 %; Platelet Count 261 10^3/cmm (157-399); Red Blood Count 4.53 10^6/uL (3.85-5.65); Red Cell Distribution Width 12.5 % (12.1-15.1); White Blood Count 8.02 10^3/uL (3.29-11.43)
[2025-02-19 00:40] LABS: Alanine Aminotransferase 47 U/L (0-41); Albumin Level 4.2 g/dL (3.5-5.2); Alkaline Phosphatase 70 U/L (40-130); Anion Gap 13.6 (5-19); Aspartate Amino Transferase 34 U/L (0-40); Blood Urea Nitrogen 14 mg/dL (6-20); Calcium 9.1 mg/dL (8.5-10.5); Carbon Dioxide 26 mmol/L (22-29); Chloride 105 mmol/L (98-107); Creatinine Clr Calc Pharmacy 133.4047; Globulin 2.8 g/dL (1.3-4.6); Glomerular Filtration Rate 83.6 mL/min (90-130); Glucose 136 mg/dL (65-115); Osmolality Calculated 295 mOsm/kg (285-295); Potassium 3.6 mmol/L (3.5-5.1); Sodium 141 mmol/L (136-145); Total Bilirubin 0.3 mg/dL (0.15-1.2)
--- NOTE | 2025-02-19 00:43 | ED_ITS ---
HPI - SOB/Dyspnea 2 General: Chief Complaint: Shortness of Breath/Dyspnea Stated Complaint: SOB dizzy Time Seen by Provider: 02/19/25 00:38 History of Present Illness: HPI Narrative: 39-year-old male with history of obesity , tobacco dependence in remission and possible asthma who presents to the emergency room with shortness of breath. States he did not have a primary provider so has not been able to get follow-up. He was treated a few weeks back. He says 3 days ago he started getting short of breath again. He has significant wheeze on exam. He is not requiring any oxygen. Related Data Previous Rx's ?Medication ?Instructions ?Recorded albuterol sulfate 90 mcg/actuation 2 inh inhalation Q4 H PRN shortness 09/04/24 aerosol inhaler of breath or wheezing #18 gr ams methylprednisolone 4 mg tablets in See Rx Instructions PO .COMPLEX 09/04/24 a dose pack (Medrol (Saman)) #21 ea albuterol sulfate 90 mcg/actuation 2 inh inhalation Q6 H PRN shortness 09/27/24 aerosol inhaler of breath or wheezing #8 gra ms prednisone 50 mg tablet 50 mg PO DAILY #5 tabs 09/27 albuterol sulfate 90 mcg/actuation 2 inh inhalation Q4 H PRN shortness 02/02/25 aerosol inhaler of breath or wheezing #18 gr ams methylprednisolone 4 mg tablets in See Rx Instructions PO .COMPLEX 02/02/25 a dose pack (Medrol (Saman)) #21 ea albuterol sulfate 90 mcg/actuation 2 inh inhalation Q4 H PRN shortness 02/19/25 aerosol inhaler of breath or wheezing #6.7 g [place] prednisone 20 mg tablet 60 mg (3 x 20 mg) PO DAILY # 20 tabs 02/19/25 Allergies Allergy/AdvReac Type Severity Reaction Status Date / Time amoxicillin Allergy ALGY-Hives Verified 02/18/25 23:31 Penicillins Allergy ALGY-Hives Verified 02/18/25 23:31 Review of Systems 2 Narrative: Constitutional symptoms: Negative except as documented in HPI. Skin symptoms: Negative except as documented in HPI. Eye symptoms: Negative except as documented in HPI. ENMT symptoms: Negative except as documented in HPI. Respiratory symptoms: Negative except as documented in HPI. Cardiovascular symptoms: Negative except as documented in HPI. Gastrointestinal symptoms: Negative except as documented in HPI. Genitourinary symptoms: Negative except as documented in HPI. Musculoskeletal symptoms: Negative except as documented in HPI. Neurologic symptoms: Negative except as documented in HPI. Psychiatric symptoms: Negative except as documented in HPI. Endocrine symptoms: Negative except as documented in HPI. PFSH ED 2 PFSH: Medical History BRBPR (bright red blood per rectum) Abdominal pain, chronic, left lower quadrant Chronic pain of right upper extremity Social History Smoking and tobacco/nicotine status: never used tobacco/nicotine Physical Exam 2 Narrative: EXAM NARRATIVE: General: Alert, no acute distress. Skin: Warm, dry. Head: Normocephalic, atraumatic. Neck: Supple, trachea midline. Eye: Extraocular movements are intact. Ears, nose, mouth and throat: Oral mucosa moist. Cardiovascular: Regular rate and rhythm, Normal peripheral perfusion. Respiratory: coarse, scattered wheeze, mild increased wob. tachypnea, breath sounds are equal, Symmetrical chest wall expansion. Gastrointestinal: Soft, Nontender, Non distended Musculoskeletal: Normal ROM, no deformity. Neurological: Alert and oriented, No focal neurological deficit observed. Psychiatric: Cooperative, appropriate mood & affect. Course 2 Vital Signs: Vital signs: Vital Signs Temperature 98.1 F 02/18/25 23:27 Pulse Rate 78 02/19/25 01:30 Respiratory Rate 22 H 02/19/25 01:30 Blood Pressure 144/65 02/19/25 01:30 Pulse Oximetry 95 02/19/25 01:30 Oxygen Delivery Me thod Room Air 02/19/25 01:30 MDM - SOB/Dyspnea Medical Decision Making Differential diagnosis for patient with shortness of breath includes but is not limited to and based on the above HPI, review of systems and physical exam: Pneumonia. Bronchitis. Asthma or COPD with acute exacerbation. Acute coronary syndrome / ND. Pulmonary embolism. Anxiety. Congestive heart failure. Viral infections including influenza and Covid-19. Atrial fibrillation. Anxiety. Pleural effusion. Pneumothorax. Orders placed to evaluate differential diagnosis based on the above differential, HPI and physical exam Chest x-ray: No acute process. No infiltrate. No pneumothorax. This was reviewed and interpreted by myself the emergency room physician. I also reviewed the radiology report. Lab Review: Laboratory results were reviewed and interpreted by myself the emergency room physician. No leukocytosis. No anemia. No renal failure. I reviewed the patient's medical record. Reexamination: Patient somewhat improved after breathing treatments. Patient remained stable. No increased work of breathing. No altered mental status. No focal motor deficits. Assessment and plan: Asthma exacerbation ? DuoNeb, albuterol updrafts and IV Solu-Medrol in the emergency room - Discharged home - Discussed plan with patient. Answered any questions. - Evaluation and treatment of this problem were appropriate in the emergency setting. Lab Data 02/19/25 00:04 02/19/25 00:04 Labs/Radiology: Radiology Impressions Chest X-Ray 02/18/25 23:47 IMPRESSION: No acute cardiopulmonary abnormality. Laboratory Results WBC 8.02 10^3/uL (3.29-11.43) 02/19/25 00:04 RBC 4.53 10^6/uL (3.85-5.65) 02/19/25 00:04 Hgb 14.10 g/dL (11.27-16.99) 02/19/25 00:04 Hct 40.3 % (37-53) 02/19/25 00:04 MCV 89.0 fl (82-101) 02/19/25 00:04 MCH 31.1 pg (27-33) 02/19/25 00:04 MCHC 35.0 g/dL (30-55) 02/19/25 00:04 RDW 12.5 % (12.1-15.1) 02/19/25 00:04 Plt Count 261 10^3/cmm (157-399) 02/19/25 00:04 MPV 9.1 fL (7.4-10.4) 02/19/25 00:04 Neut % (Auto) 38.7 % 02/19/25 00:04 Lymph % (Auto) 41.3 % 02/19/25 00:04 [place] % (Auto) 6.5 % 02/19/25 00:04 Eos % (Auto) 11.7 % 02/19/25 00:04 Baso % (Auto) 1.6 % 02/19/25 00:04 Neut # (Auto) 3.10 10^3/uL (1.8-7.7) 02/19/25 00:04 Lymph # (Auto) 3.3 10^3/uL (0.8-4.8) 02/19/25 00:04 [place] # (Auto) 0.5 10^3/uL (0.2-0.9) 02/19/25 00:04 Eos # (Auto) 0.9 10^3/uL (0.0-0.8) H 02/19/25 00:04 Baso # (Auto) 0.1 10^3/uL (0.0-0.1) 02/19/25 00:04 Nucleated RBC % (auto) 0 % 02/19/25 00:04 Nucleated RBCs # 0.0 /100WBC 02/19/25 00:04 Sodium 141 mmol/L (136-145) 02/19/25 00:04 Potassium 3.6 mmol/L (3.5-5.1) 02/19/25 00:04 Chloride 105 mmol/L (98-107) 02/19/25 00:04 Carbon Dioxide 26 mmol/L (22-29) 02/19/25 00:04 Anion Gap 13.6 (5-19) 02/19/25 00:04 BUN 14 mg/dL (6-20) 02/19/25 00:04 Creatinine 1.0 mg/dL (0.7-1.2) 02/19/25 00:04 GFR Calculation 83.6 mL/min (90-130) L 02/19/25 00:04 Glucose 136 mg/dL (65-115) H 02/19/25 00:04 Calculated Osmolality 295 mOsm/kg (285-295) 02/19/25 00:04 Calcium 9.1 mg/dL (8.5-10.5) 02/19/25 00:04 Total Bilirubin 0.3 mg/dL (0.15-1.2) 02/19/25 00:04 AST 34 U/L (0-40) 02/19/25 00:04 ALT 47 U/L (0-41) H 02/19/25 00:04 Alkaline Phosphatase 70 U/L (40-130) 02/19/25 00:04 Total Protein 7.0 g/dL (6.6-8.7) 02/19/25 00:04 Albumin 4.2 g/dL (3.5-5.2) 02/19/25 00:04 Globulin 2.8 g/dL (1.3-4.6) 02/19/25 00:04 All radiology interpretation(s) finalized by discharge Discharge Plan Discharge Patient Disposition: Home Clinical Impression: Asthma with exacerbation Condition: Stable Prescriptions: New prednisone 20 mg tablet 60 mg PO DAILY Qty: 20 0RF Rx Instructions: 3 tabs (60 mg) x 3 days. 2 tabs (40 mg) x 3 days. 1 tab (20 mg) x 3 days. 1/2 tab (10 mg) x 4 days albuterol sulfate 90 mcg/actuation HFA aerosol inhaler 2 inh inhalation Q4H PRN (Reason: shortness of breath or wheezing) Qty: 6.7 0RF Rx Instructions: Please provide patient with a spacer No Action methylprednisolone [Medrol (Saman)] 4 mg tablets,dose pack See Rx Instructions .ROUTE .COMPLEX Qty: 21 0RF Rx Instructions: orally per package directions albuterol sulfate 90 mcg/actuation HFA aerosol inhaler 2 inh INHALATION Q4H PRN (Reason: shortness of breath or wheezing) Qty: 18 0RF prednisone 50 mg tablet 50 mg PO DAILY Qty: 5 0RF albuterol sulfate 90 mcg/actuation HFA aerosol inhaler 2 inh INHALATION Q6H PRN (Reason: shortness of breath or wheezing) Qty: 8 1RF methylprednisolone [Medrol (Saman)] 4 mg tablets,dose pack See Rx Instructions .ROUTE .COMPLEX Qty: 21 0RF Rx Instructions: orally per package directions albuterol sulfate 90 mcg/actuation HFA aerosol inhaler 2 inh INHALATION Q4H PRN (Reason: shortness of breath or wheezing) Qty: 18 0RF Discharge Orders: Discharge ED (Routine); Ordered 02/19/25 Ordered By: Divya Mcghee Discharge Diet: Usual diet Discharge Activity: Increase activity as tolerated Patient Instructions: How to Use a Metered-Dose Inhaler and a Spacer (ED), Opioid Safety, Pain Management Activity Restrictions/Additional Instructions: Thank you for choosing [facility] for your healthcare needs today. You have been screened and evaluated and felt safe for discharge. Health conditions do change or evolve sometimes and as such it is important that you follow up with your Primary Doctor to be re checked, 3-5 days is a general good time frame for follow up. You are always welcome to return to the ED for re assessment if your symptoms are worsening or you have new concerns Print Language: Northern Irish Coding Level of Care Code ED Photographs Curator for Jocelynn Estrella
[2025-02-19] MEDS: albuterol 2.5 mg/3 mL Neb INHALATION (01:09)
[2025-02-19] MEDS: methylPREDNISolone sod succ 125 mg/2 mL INJ IVP (01:09)
[2025-02-19] MEDS: ipratropium-albuterol 3 mL Neb INHALATION (01:09)
[2025-02-19 01:12] VITALS: PULSE 78; RESP 18; O2SAT 93
[2025-02-19 01:22] VITALS: PULSE 82; RESP 16; O2SAT 96
[2025-02-19 01:30] VITALS: BP 144/65; PULSE 78; RESP 22; O2SAT 95
[2025-02-19 02:26] VITALS: BP 142/70; PULSE 88; RESP 18; O2SAT 97
== END 2025-02-19 02:27 | disposition home or self-care (01) ==
PROVIDERS: Emergency Provider Emergency Medicine
DX: J45.901 Unspecified asthma with (acute) exacerbation (principal)
CPT/HCPCS: 36415; 71045; 80053; 85025; 93005; 94640; 96374; 99285; J2919; J7613; J9999